=== PATIENT | female | born 1990 | race Caucasian/White ===

== ENCOUNTER → 2017-12-25 10:50 | Outpatient (CLI) | payer MEDICAID, SELFPAY ==
[2017-12-25 11:39] LABS: Basophils % 0.3 % (0.1-2.0); Eosinophils # 0.1 K/mm3 (0.0-0.4); Hematocrit 40.1 % (37.0-47.0); Hemoglobin 13.2 g/dL (12.2-16.2); Lymphocytes # 2.6 K/mm3 (0.7-4.5); Lymphocytes % 23.8 K/mm3 (10-50); Mean Corpuscular HGB Conc 32.8 g/dL (31.8-35.4); Mean Corpuscular Hemoglobin 30.8 pg (27.0-31.2); Mean Platelet Volume 8.3 fl (7.4-10.4); Monocytes # 0.5 K/mm3 (0.1-1.0); Monocytes % 4.3 % (1.7-9.3); Neutrophils # 7.7 K/mm3 (1.8-7.8); Neutrophils % 70.6 % (37.0-80.0); Platelet Count 275 K/mm3 (142-424); Red Blood Count 4.27 M/mm3 (4.20-5.40); Red Cell Distribution Width 12.8 % (11.5-17.5); White Blood Count 10.9 K/mm3 (4.8-10.8)
[2017-12-26 06:31] LABS: Rubella Antibodies, IgG 3.26 index (Immune >0.99)
[2017-12-26 12:36] LABS: HIV Screen 4th Generation wRfx Non Reactive (Non Reactive); Hepatitis B Surface Antigen Negative (Negative); Hepatitis C Antibody <0.1 s/co ratio (0.0-0.9)
[2017-12-26 12:37] LABS: Rapid Plasma Reagin Ab Titer Non Reactive (NonRea<1:1)
== END ==
PROVIDERS: PCP Family Medicine; Visit Provider Nurse Practitioner Obstetrics & Gynecology
DX: Z34.90 Encounter for supervision of normal pregnancy, unspecified, unspecified trimester (principal)
CPT/HCPCS: 36415; 85025; 86592; 86703; 86762; 86850; 87340; 87380; G0432

== ENCOUNTER → 2017-12-30 08:19 | Outpatient (CLI) | payer MEDICAID, SELFPAY ==
--- NOTE | 2017-12-30 08:21 | US_ITS ---
US OB transvaginal HISTORY: ITS.REASON: US OB Dates ORDERING PHYSICIAN: Narayan Olguin MD PATIENT AGE: 27 years COMPARISON: None FINDINGS: An intrauterine gestational sac is present with a pole with a crown-rump length of 2.28cm correlating to gestational age of 9w0d. heart tones are present with an FHR of 190 bpm's. Yolk sac is noted. The amnion and chorion have not yet fused. Adnexa: Unremarkable. IMPRESSION: Live intrauterine gestation at 9 weeks as described above. Estimated due date by Ultrasound is 08/04/2018
== END ==
PROVIDERS: PCP Family Medicine; Visit Provider Nurse Practitioner Obstetrics & Gynecology
DX: O26.841 Uterine size-date discrepancy, first trimester (principal)
CPT/HCPCS: 76817

== ENCOUNTER → 2018-03-13 12:46 | Outpatient (CLI) | payer MEDICAID, SELFPAY ==
--- NOTE | 2018-03-13 12:49 | US_ITS ---
US OB /maternal detail: INDICATION: ITS.REASON: US OB Complete ORDERING PHYSICIAN: Narayan Olguin MD PATIENT AGE: 27 years TECHNIQUE: ultrasound transabdominal scanning. COMPARISON: No previous relevant studies. FINDINGS: Single viable intrauterine gestation. Cephalic position. Placenta: Posterior placenta grade 1. There is average amount amniotic fluid. The cervix appears satisfactory. Closed and measuring 4 cm in length. Complete survey performed and was unremarkable on the submitted images as in PACS. No discrete anomalies identified on survey imaging by technologist. Active fetus. Three-vessel cord with satisfactory umbilical cord insertion. 4- chamber heart noted. Survey of brain & ventricles unremarkable. Face and neck survey unremarkable. Diaphragm and chest views unremarkable. Abdomen: Both kidneys noted and unremarkable. Stomach noted and satisfactory. Spine: Survey of the spine satisfactory with no anomalies identified nor imaged. Both arms and legs noted. Amniotic Fluid: Adequate. Maternal adnexa: No significant findings. Measurements: Average ultrasound age 19w5d. Gestational Age 19w3d. Estimated due date by ultrasound age 0508/02/2018. Estimated weight 303 grams. BPD = 19w5d OFD = 20w2d HC = 19w2d AC = 19w5d FL = 19w5d Growth Percentile= 57% Heart Rate = 191 Cerebellum = 19w4d Humerus = 20w1d HC/AC is 1.15 (1.09-1.26). CI is 76% (70-86%). FL/BPD is 69%. FL/AC is 22%. IMPRESSION: IMPRESSION: There is a single live fetus which is in cephalic presentation with an average ultrasound age of 19 weeks 5 days. All parameters correlate. No obvious anomalies. Placenta is posterior and grade one. Please see above for detail.
== END ==
PROVIDERS: PCP Family Medicine; Visit Provider Nurse Practitioner Obstetrics & Gynecology
DX: Z36.0 Encounter for antenatal screening for chromosomal anomalies (principal)
CPT/HCPCS: 76811

== ENCOUNTER → 2018-05-05 08:10 | Outpatient (CLI) | payer MEDICAID, SELFPAY ==
[2018-05-05 08:57] LABS: Glucose,Fasting 85 mg/dL (60-105)
[2018-05-05 10:26] LABS: Glucose 1 Hour 161 mg/dL (74-106)
== END ==
PROVIDERS: Visit Provider Nurse Practitioner Obstetrics & Gynecology
DX: Z34.90 Encounter for supervision of normal pregnancy, unspecified, unspecified trimester (principal)
CPT/HCPCS: 36415; 82951

== ENCOUNTER 2018-05-12 08:23 | Outpatient (CLI) | payer MEDICAID, SELFPAY ==
[2018-05-12 08:32] VITALS: BMI 29.7
[2018-05-12 08:56] VITALS: BMI 30.8
[2018-05-12 09:00] VITALS: BP 107/68; PULSE 89; RESP 20; TEMP 36.7; O2SAT 100; BMI 30.8
[2018-05-12 09:04] LABS: Microscopic, Urine URINE MICROSCOPIC (MICROSCOPIC)
[2018-05-12 09:10] LABS: Appearance,Urine SL CLOUDY (Clear); Bilirubin,Urine Negative (Negative); Blood, Urine Negative (Negative); Color,Urine YELLOW (Yellow); Glucose,Urine (UA) Negative (Negative); Ketones,Urine Negative (Negative); Leukocyte Esterase,Urine 1+ (Negative); Nitrate,Urine Negative (Negative); PH,Urine 6.5 (5.0-8.5); Protein,Urine Negative (Negative); Urobilinogen,Urine 0.2 EU/dl (0.2)
[2018-05-12 09:29] LABS: Bacteria,Urine 1+ /lpf
[2018-05-12 09:41] LABS: Fetal Fibronectin (Rapid) Negative (Negative)
--- NOTE | 2018-05-12 10:13 | [facility].ACPN2 ---
Internal Medicine - PN: Subj *Date: 05/12/18 *Time: 10:13 Interval history: She is a 28-year-old 3 para 2 at 30 weeks gestational age. She complains of pressure. She has been working 60 hours a week doing 12-hour shifts. She has not had a history of labor in the past. On examination her cervix is 1-2 cm long and soft. The presenting part is high. There are no cause on the monitor. The nonstress test is reactive. Exam Vital signs and Labs for Last 24 Hours: Temp Pulse Resp BP Pulse Ox 98.0 F 89 20 107/68 L 100 05/12/18 09:00 05/12/18 09:00 05/12/18 09:00 05/12/18 09:00 05/12/18 09:00 Laboratory Results - last 24 hr 05/12/18 08:30: Urine Color Yellow, Urine Appearance Sl cloudy, Urine pH 6.5, Ur Specific [place] 1.020, Urine Protein Negative, Urine Glucose (UA) Negative, Urine Ketones Negative, Urine Blood Negative, Urine Nitrate Negative, Urine Bilirubin Negative, Urine Urobilinogen 0.2, Ur Leukocyte Esterase 1+ A, Urine RBC None, Urine WBC 3-5, Ur Squamous Epith Cells 5-10, Urine Bacteria 1+ 05/12/18 08:30: Fibronectin Negative I & O for Last 24 hours: Intake & Output 05/09/18 05/10/18 05/11/18 05/12/18 11:59 11:59 11:59 11:59 Weight 158 lb - Constitutional no acute distress - *Routine HEENT Exam Head: Present: normocephalic Eye: Present: EOMI, PERRL ENT: Present: mucous membranes moist - *Routine Neck Exam Present: supple, full ROM - *Routine Respiratory Exam Absent: accessory muscle use (good air entry bilaterally), wheezes, crackles - *Routine Cardiovascular Exam Present: RRR. Absent: murmur - *Routine Abdominal Exam Present: soft, normoactive bowel sounds. Absent: tenderness, rebound, guarding, mass - *Routine Rectal Exam Patient deferred: visual exam, digital exam - *Routine Exam Patient deferred: external exam, groin exam, perineal exam - *Routine Extremities Exam Present: full ROM. Absent: cyanosis, edema, calf tenderness - *Routine Skin Exam Present: intact (good color) - *Routine Neurological Exam Present: alert, oriented X3 - Routine Psychiatric Exam Present: normal affect Assessment and Plan (1) Term delivery with labor in third trimester Current visit: Yes Status: Acute Category: Medical Code(s): O60.23X0 - Term delivery with labor, third trimester, not applicable or unspecified - Assessment and plan all Dx Assessment and Plan for all problems:: Her cervix is soft and 1-2 cm. The presenting part is high. We have given her a dose of steroids and she will return tomorrow for the second dose. She will rest as much as possible over the next 48 hours. She will follow-up with me in the office next week
== END 2018-05-12 10:15 | disposition home or self-care (01) ==
LOC: OBOUT 08:24 → OB 08:25
PROVIDERS: PCP Family Medicine; Visit Provider Nurse Practitioner Obstetrics & Gynecology
DX: O26.893 Other specified pregnancy related conditions, third trimester (principal); Z3A.28 28 weeks gestation of pregnancy; R10.2 Pelvic and perineal pain
CPT/HCPCS: 59025; 81001; 82731; 87086; 96360; 96372

== ENCOUNTER 2018-05-13 09:00 | Outpatient (CLI) | payer MEDICAID, SELFPAY | END 2018-05-13 09:30 | disposition home or self-care (01) | LOC: OBOUT 09:02 → OB 09:07 | PROVIDERS: PCP Family Medicine; Visit Provider Nurse Practitioner Obstetrics & Gynecology | DX: O26.893 Other specified pregnancy related conditions, third trimester (principal); Z3A.28 28 weeks gestation of pregnancy; R10.2 Pelvic and perineal pain | CPT/HCPCS: 96372 ==

== ENCOUNTER 2018-05-14 09:13 | Outpatient (CLI) | payer MEDICAID, SELFPAY ==
[2018-05-14 09:40] VITALS: BP 116/72; PULSE 104; RESP 20; TEMP 36.8; O2SAT 97; BMI 31.2
--- NOTE | 2018-05-14 10:11 | US_ITS ---
US OB biophysical profile: Indication: Decreased movement ITS.REASON: decreased movement ORDERING PHYSICIAN: Narayan Olguin MD PATIENT AGE: 28 years FINDINGS: The following parameters are obtained: Average ultrasound age is 29 weeks 1 day. Estimated weight is 1321 g. This is 37 percentile BPD: 29 weeks 0 days OFD: 29 weeks 4 days HC: 29 weeks 1 day AC: 29 weeks 1 day FL: 29 weeks 0 days heart rate: 144 bpm. HC/AC: 1.08 Cephalic index: 75% FL/BPD: 76% FL/AC: 22% Amniotic fluid index: 12 cm Qualitative AFV: 2 breathing movements: 2 Gross body movements: 2 Tone: 2 Biophysical profile score: 8/8 Doppler evaluation of the umbilical artery: SD ratio: 2.6 Resistive index: 0.62 No obvious anomalies evident. Placenta: Posterior and grade 1 Cervix: Closed and measures 4 cm IMPRESSION: Single live fetus in cephalic presentation. Average ultrasound age 29 weeks 1 day. Biophysical profiles 8 of 8 with normal amniotic fluid volume and normal Doppler evaluation of the umbilical artery
[2018-05-14 12:28] LABS: Microscopic, Urine URINE MICROSCOPIC (MICROSCOPIC)
[2018-05-14 12:29] LABS: Appearance,Urine SL CLOUDY (Clear); Bilirubin,Urine Negative (Negative); Blood, Urine TRACE-L (Negative); Color,Urine YELLOW (Yellow); Glucose,Urine (UA) Negative (Negative); Ketones,Urine Negative (Negative); Leukocyte Esterase,Urine 1+ (Negative); Nitrate,Urine Negative (Negative); PH,Urine 6.5 (5.0-8.5); Protein,Urine Negative (Negative); Specific Gravity, Urine 1.015 (1.005-1.030); Urobilinogen,Urine 0.2 EU/dl (0.2)
[2018-05-14 12:43] LABS: Amorphous Sediment,Urine 1+ /lpf; Bacteria,Urine 2+ /lpf
== END 2018-05-14 12:15 | disposition home or self-care (01) ==
LOC: OBOUT 09:15 → OB 09:16
PROVIDERS: PCP Family Medicine; Visit Provider Nurse Practitioner Obstetrics & Gynecology
DX: O26.893 Other specified pregnancy related conditions, third trimester (principal); Z3A.29 29 weeks gestation of pregnancy
CPT/HCPCS: 59025; 76819; 81001; 87086

== ENCOUNTER → 2018-05-19 16:21 | Outpatient (CLI) | payer MEDICAID, SELFPAY ==
[2018-05-19 16:57] LABS: Fetal Fibronectin (Rapid) Negative (Negative)
== END ==
PROVIDERS: Visit Provider Nurse Practitioner Obstetrics & Gynecology
DX: Z34.90 Encounter for supervision of normal pregnancy, unspecified, unspecified trimester (principal)
CPT/HCPCS: 82731

== ENCOUNTER → 2018-05-26 16:21 | Outpatient (CLI) | payer MEDICAID, SELFPAY ==
[2018-05-26 17:20] LABS: Fetal Fibronectin (Rapid) Negative (Negative)
== END ==
PROVIDERS: Visit Provider Nurse Practitioner Obstetrics & Gynecology
DX: Z34.90 Encounter for supervision of normal pregnancy, unspecified, unspecified trimester (principal)
CPT/HCPCS: 82731

== ENCOUNTER 2018-06-20 15:56 | Outpatient (CLI) | payer MEDICAID, SELFPAY ==
[2018-06-20 16:18] VITALS: BP 115/65; PULSE 101; RESP 20; TEMP 37.1; O2SAT 98; BMI 26.5
[2018-06-20 17:03] LABS: Microscopic, Urine URINE MICROSCOPIC (MICROSCOPIC)
[2018-06-20 17:07] LABS: Appearance,Urine CLOUDY (Clear); Bilirubin,Urine Negative (Negative); Blood, Urine TRACE-L (Negative); Color,Urine YELLOW (Yellow); Glucose,Urine (UA) Negative (Negative); Ketones,Urine TRACE (Negative); Leukocyte Esterase,Urine 1+ (Negative); Nitrate,Urine Negative (Negative); Protein,Urine TRACE (Negative); Specific Gravity, Urine >= 1.030 (1.005-1.030); Urobilinogen,Urine 0.2 EU/dl (0.2)
[2018-06-20 17:17] LABS: Bacteria,Urine 4+ /lpf; Mucus,Urine 4+ /lpf; Squamous Epithelial Cell,Urine 20-50 #/hpf (0-5); Trichomonas,Urine 1+ /lpf; WBC,Urine 20-50 #/hpf (0-3)
== END 2018-06-20 18:50 | disposition home or self-care (01) ==
LOC: OBOUT 15:57 → OB 15:58
PROVIDERS: PCP Family Medicine; Visit Provider Nurse Practitioner Obstetrics & Gynecology
DX: O26.93 Pregnancy related conditions, unspecified, third trimester (principal); Z3A.33 33 weeks gestation of pregnancy; R10.9 Unspecified abdominal pain
CPT/HCPCS: 59025; 81001; 87086; 96360; 96361; 96365; 96367; 96372; J0595

== ENCOUNTER → 2018-07-21 17:30 | Outpatient (CLI) | payer MEDICAID, SELFPAY | PROVIDERS: Visit Provider Nurse Practitioner Obstetrics & Gynecology | DX: Z34.90 Encounter for supervision of normal pregnancy, unspecified, unspecified trimester (principal); Z3A.38 38 weeks gestation of pregnancy | CPT/HCPCS: 86403 ==

== ENCOUNTER 2018-07-27 02:07 | Inpatient (IN) ==
[2018-07-27 05:38] LABS: Basophils % 0.4 % (0.1-2.0); Eosinophils # 0.1 K/mm3 (0.0-0.4); Hematocrit 32.7 % (37.0-47.0); Hemoglobin 11.1 g/dL (12.2-16.2); Lymphocytes # 2.7 K/mm3 (0.7-4.5); Lymphocytes % 28.6 % (10-50); Mean Corpuscular Hemoglobin 29.4 pg (27.0-31.2); Mean Corpuscular Volume 86.7 fl (81-99); Mean Platelet Volume 10.2 fl (7.4-10.4); Monocytes # 0.5 K/mm3 (0.1-1.0); Monocytes % 5.7 % (1.7-9.3); Neutrophils # 6.1 K/mm3 (1.8-7.8); Neutrophils % 64.3 % (37.0-80.0); Platelet Count 216 K/mm3 (142-424); Red Blood Count 3.77 M/mm3 (4.20-5.40); Red Cell Distribution Width 13.4 % (11.5-17.5); White Blood Count 9.5 K/mm3 (4.8-10.8)
[2018-07-27 07:47] LABS: Microscopic, Urine URINE MICROSCOPIC (MICROSCOPIC)
[2018-07-27 07:56] LABS: Appearance,Urine SL CLOUDY (Clear); Bilirubin,Urine Negative (Negative); Blood, Urine Negative (Negative); Color,Urine YELLOW (Yellow); Glucose,Urine (UA) Negative (Negative); Ketones,Urine Negative (Negative); Leukocyte Esterase,Urine TRACE (Negative); PH,Urine 6.5 (5.0-8.5); Protein,Urine Negative (Negative); Urobilinogen,Urine 0.2 EU/dl (0.2)
--- NOTE | 2018-07-27 08:02 | Progress Note ---
Labor Note - Subjective: Date: 07/27/18 Time: 08:01 regular contraction - Objective: NST:: Reactive Contractions:: every 2-3 minutes Cervical Dilation:: 5 Effacement:: 90% Station: -1 Membranes: artificially ruptured Comment:: I ruptured her membranes and there was clear fluid. - Fetus: Monitoring?: Yes monitoring type:: External - Assessment: Labor progressing?: Yes Cephalopelvic disproportion?: No Patient Problems: All Active Problems (Updated 07/21/18 @ 08:50 by Amna Cunningham, [facility]) Term delivery with labor in third trimester (Acute) (Acute) - Plan: Anesthesia for epidural?: Yes Continue to labor down?: Yes Plan for ?: No Continue to monitor?: Yes
[2018-07-27 08:04] LABS: Amphetamine/Metha Screen,Urine Negative ng/mL (<1000); Barbiturates Screen,Urine Negative ng/mL (<200); Benzodiazepines Screen,Urine Negative ng/mL (<200); Cannabinoid Screen,Urine Negative ng/mL (<50); Cocaine Screen,Urine Negative ng/mL (<300); Methadone Screen,Urine Negative ng/mL (<300); Opiate Screen,Urine Negative ng/mL (<300); Phencyclidine Screen,Urine Negative ng/mL (<25)
--- NOTE | 2018-07-27 08:04 | History & Physical Report ---
OB - H&P: HPI Antepartum - History of Present Illness Chief complaint: She is term with lots of pressure and occasional contractions History of present illness: She is a 28-year-old 4 para 2 aborta 1 who is 39 weeks gestational age. She has been having painful contractions and lots of pressure for the last few weeks. As a result of that we have admitted her for augmentation at term - History of Present Criteria for establishing EDC:: LMP confirmed by 1st trimester US care: good care Ultrasounds: normal 1st trimester US, normal mid trimester US Obstetrical complications: labor Medical complications: none [facility] History I have reviewed the patient's past medical history: Yes Medical History: Reports:: Depression Denies:: Anxiety, Diabetes Mellitus Type 1, Migraine, MRSA *Have you ever received a pneumonia vaccine?: No *Have you received a flu vaccine this season?: No Other Surgeries: Yes: No Previous Surgery. No: Amputation: No Fractures: No - *Social History Smoking Status: Current every day smoker Alcohol Intake: never Substance Use Type: denies use *Occupational Status:: employed - Psychiatric History Pschychiatric History:: Reports:: Depression Denies:: Anxiety Family Hx:: No significant family history Para: 2 Review of Systems - Review of Systems Review of systems:: pertinent systems reviewed and negative unless documented below Meds Home Medications Medication Instructions Recorded Confirmed Type Ferrous Sulfate 325 mg PO DAILY 07/27/18 07/27/18 History Vit Calc,Iron,Folic [Kpn] 1 tab PO DAILY 07/27/18 07/27/18 History Allergies Allergy/AdvReac Type Severity Reaction Status Date / Time No Known Allergies Allergy Verified 07/21/18 08:48 OB - H&P: Exam - Physical Exam Vital signs: Temp Pulse Resp BP Pulse Ox 98.6 F 86 16 121/90 99 07/27/18 05:58 07/27/18 05:58 07/27/18 05:58 07/27/18 05:58 07/27/18 05:58 - Constitutional no acute distress - Routine HEENT Exam Head: Present: normocephalic Eye: Present: EOMI, PERRL ENT: Present: mucous membranes moist - Routine Neck Exam Present: supple, full ROM - Routine Respiratory Exam Absent: accessory muscle use (good air entry bilaterally), respiratory distress, wheezes, crackles - Routine Cardiovascular Exam Present: RRR. Absent: murmur - Routine Abdominal Exam Present: soft, normoactive bowel sounds. Absent: tenderness, distended, guarding - Routine Rectal Exam Patient deferred: visual exam, digital exam - Routine Exam Patient deferred: external exam, groin exam, perineal exam - Routine Extremities Exam Present: full ROM. Absent: cyanosis, edema - Routine Skin Exam Present: intact. Absent: cyanosis - Routine Neurological Exam Present: alert, oriented X3 - Routine Psychiatric Exam Present: normal affect OB - Results - Labs Labs: Short CBC 07/27/18 Range/Units 05:30 WBC 9.5 (4.8-10.8) K/mm3 Hgb 11.1 L (12.2-16.2) g/dL Hct 32.7 L (37.0-47.0) % Plt Count 216 (142-424) K/mm3 OB - A/P Antepartum (1) Normal delivery Current visit: Yes Status: Acute - Additional Plan Planning to breastfeed?: No Plan: other Additional Information:: I ruptured her membranes and she is 5 cm dilated. She has had 2 previous vaginal deliveries. We expect a normal vaginal delivery.
[2018-07-27 08:10] LABS: Amorphous Sediment,Urine 1+ /lpf; Bacteria,Urine Trace /lpf; RBC,Urine Occasional #/hpf (0-3)
--- NOTE | 2018-07-27 09:31 | Procedure Note ---
- Delivery Note Delivery Date:: 07/27/18 Delivery Time:: 09:14 Anesthesia Type: Epidural Was labor medically induced?: Yes Induction method: per pitocin protocol Gestational age (weeks): 39 Infant delivered prior to 39 weeks?: No Justification for early elective delivery:: Active Labor Infant Gender: Male at 1 minute: 8 at 5 minutes: 9 LAC or MLE?: LAC Delivery Procedure:: She is a 28-year-old 4 para 2 aborta 1 who was 39 weeks gestational age. She has had pressure and irregular contractions for the last month. As result of that we elected to augment her labor. She was started on IV oxytocin and had her membranes ruptured. She progressed to full dilation and delivered spontaneously a liveborn male child at 9:14 AM on the morning of July 27, 2018. On deliver the head the anterior shoulder then delivered followed by the rest the 's body atraumatically. We allowed the cord to continue to pulsate for approximately 1 minute. The cord was then doubly clamped and cut. Baby was placed on the mother's abdomen for further care. The nurses assigned Apgars of 8 at 1 minute and 9 at 5 minutes. We then obtained cord blood as well as cord pH. Using gentle traction on the cord and countertraction the fundus I was able to deliver the placenta intact. He had a normal three-vessel cord. She had a small 1 cm posterior first-degree vaginal laceration that was repaired with a single [id number] 3-0 Vicryl Rapide suture. She has O+ blood, she is rubella immune and was group B streptococcus negative. She plans to bottlefeed. Her admission liaison is Dr. Daugherty. Estimated blood loss is approximately 400 cc Laceration:: vaginal Placental Delivery Description: Spontaneous
--- NOTE | 2018-07-27 14:43 | Progress Note ---
[facility] Anesthesia Checklist - Patient Identification Patient Identification: Arm Band, Verbal (Name & ) - Structural Data Admitted From: Inpatient Planned Operative Procedure/s: labor epidural Consent for Planned Operative Procedure(s) Verified: Yes Verified Documents: History and Physical - Additional verifications Patient : Yes Anesthesia Reactions: No Hx Blood Transfusions: No Blood Transfusion Reaction: No Cephalosporin Allergy: No Previous Colonoscopy: No - Cardiovascular Assessment Heart Sounds: S1 & S2 Pulse Strength: Baseline Pulse Rhythm: Regular Peripheral Edema: Yes - Airway Assessment C-Spine Mobility Assessed: Yes TMJ Mobility Assessed: Yes Dentition: Good Dentition - Neurological Assessment Level of Consciousness: Awake, Alert, Appropriate Hx Seizures: No Numbness or tingling in extremities: No - Anesthesia Plan Anesthesia Risk discussed: Yes Anesthesia Plan: Verified ASA Class: II Anesthesia Type: Epidural [facility] History I have reviewed the patient's past medical history: Yes Medical History: Reports:: Depression Denies:: Anxiety, Diabetes Mellitus Type 1, Migraine, MRSA *Have you ever received a pneumonia vaccine?: No *Have you received a flu vaccine this season?: No Other Surgeries: Yes: No Previous Surgery. No: Amputation: No Fractures: No - *Social History Smoking Status: Current every day smoker Alcohol Intake: never Substance Use Type: denies use *Occupational Status:: employed - Psychiatric History Pschychiatric History:: Reports:: Depression Denies:: Anxiety Family Hx:: No significant family history Para: 2
[2018-07-28 07:18] LABS: Hematocrit 29.2 % (37.0-47.0); Hemoglobin 9.7 g/dL (12.2-16.2)
--- NOTE | 2018-07-28 17:33 | Progress Note ---
Internal Medicine - PN: Subj *Date: 07/28/18 *Time: 17:33 Interval history: She continues to do well. She is eating and drinking and ambulating. She is bottlefeeding. Her lochia is normal. Exam Vital signs and Labs for Last 24 Hours: Temp Pulse Resp BP Pulse Ox 98.1 F 78 16 103/62 L 98 07/27/18 19:50 07/27/18 19:50 07/27/18 19:50 07/27/18 19:50 07/27/18 19:50 Laboratory Results - last 24 hr 07/28/18 06:31: Hgb 9.7 L, Hct 29.2 L I & O for Last 24 hours: Intake & Output 07/26/18 07/27/18 07/28/18 07/29/18 11:59 11:59 11:59 11:59 Weight 163 lb 0.016 oz - Constitutional no acute distress Assessment and Plan (1) Normal delivery Current visit: Yes Status: Acute Category: Medical Code(s): O80 - Encounter for full-term uncomplicated delivery - Assessment and plan all Dx Assessment and Plan for all problems:: She continues to do well. We will plan to send her home tomorrow.
[2018-07-28 21:06] VITALS: BP 109/62
--- NOTE | 2018-07-29 09:30 | Discharge Summary ---
General - General Admission date:: 07/27/18 Discharge date: 07/29/18 HPI HPI: She is a 28-year-old 4 now para 3 aborta 1 who was 3904 weeks gestational age. She was having pressure and irregular contractions since about 32 weeks. As result of that she was brought in for augmentation of labor. Hospital Course Hospital Course: She was started on IV oxytocin had her memory and ruptured and under labor epidural progressed to full dilation she delivered spontaneously a liveborn male child at 9:14 AM on the morning of July 27, 2018. The baby weighed 7 pounds 6 ounces and was 20 inches long. He had Apgars of 8 at 1 minute and 9 at 5 minutes. She had a small first-degree posterior vaginal laceration. She has done well and has remained afebrile throughout her hospitalization. She is eating and drinking and ambulating. She is bottlefeeding. Her lochia is normal. She has O+ blood, she is rubella immune and was group B streptococcus negative. Her campus executive director is Dr. stevenson. She is discharged home follow-up with me in approximately 2 weeks time. She will continue with her vitamins and iron. She was given a prescription for Percocet 5/325 number 20 tablets. Her condition on discharge is stable. Rhogam Administration: Not Indicated Objective Vital signs: Temp Pulse Resp BP Pulse Ox 98.0 F 79 16 109/62 L 98 07/28/18 20:05 07/28/18 20:05 07/28/18 20:05 07/28/18 20:05 07/28/18 20:05 no acute distress DS: Diagnosis - Discharge Diagnosis (1) Normal delivery Status: Acute Discharge Plan - Patient Discharge Instructions ACTIVITY: No heavy lifting DIET: continue same diet Additional Instructions: Nothing in vagina for 6 weeks Follow up with Doctor Olguin on No heavy lifting Patient Instructions: Depression, Hemorrhage, [facility] Post Discharge Instructions - Follow up Plan Follow up with: Narayan Olguin MD [Staff Physician] - Disposition: Home, Self-Intermediate Medications: Home Medications Medication Instructions Recorded Confirmed Type Ferrous Sulfate 325 mg PO DAILY 07/27/18 07/27/18 History Vit Calc,Iron,Folic [Kpn] 1 tab PO DAILY 07/27/18 07/27/18 History Oxycodone HCl/Acetaminophen 1 - 2 tab PO Q4-6H PRN #20 tab 07/29/18 Rx [Percocet 5/325mg tablet] Prescriptions/Medication Reconciliation: New Oxycodone HCl/Acetaminophen [Percocet 5/325mg tablet] 1 - 2 tab PO Q4-6H PRN #20 tab PRN Reason: Severe Pain Continued Vit Calc,Iron,Folic [Kpn] 1 tab PO DAILY Ferrous Sulfate 325 mg PO DAILY
== END 2018-07-29 10:45 | disposition home or self-care (01) | DRG 807 ==
LOC: OB 04:53
PROVIDERS: ADMIT Nurse Practitioner Obstetrics & Gynecology; ATTEND Nurse Practitioner Obstetrics & Gynecology
CPT/HCPCS: J0595

== ENCOUNTER → 2018-09-24 07:46 | Outpatient (CLI) | payer MEDICAID, SELFPAY ==
--- NOTE | 2018-09-24 07:48 | US_ITS ---
US gallbladder HISTORY: ITS.REASON: US Gallbladder- RUQP ORDERING PHYSICIAN: Narayan Olguin MD PATIENT AGE: 28 years Comparison: None FINDINGS: Common bile duct is normal measuring 2.0 mm. Visualized portions of the right kidney, gallbladder, liver, portal vein, pancreas area and IVC appear normal. IMPRESSION: No definite gallstone or acute process.
--- NOTE | 2018-09-24 07:48 | US_ITS ---
US transvaginal HISTORY: ITS.REASON: US T/V- Pelvic Pain ORDERING PHYSICIAN: Narayan Olguin MD PATIENT AGE: 28 years Comparison: None FINDINGS: The uterus is empty with endometrial thickness of 1.4 cm. There is minimal: Sak fluid. Right ovary is 3.6 x 2.2 x 2.0 cm. Left ovary is 2.8 x 1.8 x 11.7 cm. Left ovary shows a a few small follicles with blood flow. Right ovary also shows small follicles with normal blood flow. Impression: Nonspecific small amount of cul-de-sac fluid likely physiological. Bilateral small ovarian follicles.
== END ==
PROVIDERS: Visit Provider Nurse Practitioner Obstetrics & Gynecology
DX: R10.11 Right upper quadrant pain (principal); R10.2 Pelvic and perineal pain
CPT/HCPCS: 76705; 76830

== ENCOUNTER → 2018-11-04 09:04 | Outpatient (CLI) | payer MEDICAID, SELFPAY ==
--- NOTE | 2018-11-04 09:10 | US_ITS ---
US OB transvaginal: INDICATION: Right-sided intermittent pelvic pain ITS.REASON: US OB T/V- R/O Ectopic ORDERING PHYSICIAN: Narayan Olguin MD PATIENT AGE: 28 years FINDINGS: There is marked thickening of the endometrium measuring up to 2.6 cm with a minimal amount of fluid within the endometrial canal. There are multiple tiny cystic structures within the endometrium. No parts are identified. The uterus measures 9.4 x 6.8 x 7.8 cm. The right ovary is 3.4 x 2.7 cm and contains a 1.3 cm cyst. The left ovary is 3 x 1 cm containing small follicles. No cul-de-sac fluid is evident. IMPRESSION: 1. Markedly thickened endometrium containing small cystic structures. Molar is a consideration. Please correlate with serum beta hCG levels 2. Small amount of fluid within the endometrial canal. This does not have the normal appearance of a normal gestational sac.. No definite intrauterine gestation apparent.
== END ==
PROVIDERS: PCP Family Medicine; Visit Provider Nurse Practitioner Obstetrics & Gynecology
DX: O00.90 Unspecified ectopic pregnancy without intrauterine pregnancy (principal)
CPT/HCPCS: 76817

== ENCOUNTER → 2019-01-14 12:39 | Outpatient (CLI) | payer MEDICAID, SELFPAY ==
--- NOTE | 2019-01-14 12:40 | US_ITS ---
PROCEDURE: US OB TRANSVAGINAL CLINICAL INDICATION: US OB for dates, some cramping(as hx of molar ) Early Ob ultrasound COMPARISON: OBTV US OB transvaginal from 11/04/2018 FINDINGS: The endometrium is markedly thickened as before at 2.2 cm previously measuring 2.6 cm with multiple small lakes noted within the endometrium. There is 1 cystic area within the upper aspect of the endometrium at 5 x 4 mm by 7 mm and could represent a small gestational sac. No pole or yolk sac is evident. In addition there is a 9 x 4 mm oval area of decreased echogenicity in the anterior aspect of the thickened endometrium. The left ovary is 3 x 2.7 cm containing a small cyst. The right ovary is 2.8 x 2 cm. There is a small amount of cul-de-sac fluid IMPRESSION: Thickened endometrium with a small gestational sac noted. No yolk sac or pole evident. Cannot confirm viability at this time. Please correlate with beta HCG and follow-up ultrasound. There are several small cystic areas within the thickened endometrium. Dictated by: Chacho Frey MD 01/15/2019 12:08 Electronically signed by Chacho Frey MD in [facility] 01/15/2019 12:08
== END ==
PROVIDERS: PCP Physician Assistant; Visit Provider Nurse Practitioner Obstetrics & Gynecology
DX: O26.841 Uterine size-date discrepancy, first trimester (principal); Z87.59 Personal history of other complications of pregnancy, childbirth and the puerperium
CPT/HCPCS: 76817

== ENCOUNTER → 2019-02-19 09:26 | Outpatient (CLI) | payer MEDICAID, SELFPAY ==
--- NOTE | 2019-02-19 09:40 | US_ITS ---
PROCEDURE: US OB TRANSVAGINAL CLINICAL INDICATION: US T/V- OB Dates COMPARISON: US OB TRANSVAGINAL from 01/14/2019 FINDINGS: An intrauterine gestational sac is present with a pole with a crown-rump length of 3.47 cm correlating to gestational age of 10.43 week. heart tones are present with an FHR of 174 bpm. Yolk sac is noted. The amnion and chorion and not yet fused. IMPRESSION: Live IUP at 10 weeks 3 days Estimated due date by Ultrasound is 09/14/2019 Dictated by: Chacho Frey MD 02/19/2019 17:12 Electronically signed by Chacho Frey MD in [facility] 02/19/2019 17:12
== END ==
PROVIDERS: PCP Physician Assistant; Visit Provider Nurse Practitioner Obstetrics & Gynecology
DX: O26.841 Uterine size-date discrepancy, first trimester (principal)
CPT/HCPCS: 76817

== ENCOUNTER → 2019-03-23 09:38 | Outpatient (CLI) | payer MEDICAID, SELFPAY ==
[2019-03-23 10:30] LABS: Basophils % 0.3 % (0.1-2.0); Eosinophils # 0.1 K/mm3 (0.0-0.4); Eosinophils % 1.3 % (0.1-12.0); Hematocrit 33.8 % (37.0-47.0); Hemoglobin 11.6 g/dL (12.2-16.2); Lymphocytes # 1.9 K/mm3 (0.7-4.5); Lymphocytes % 18.5 % (10-50); Mean Corpuscular HGB Conc 34.3 g/dL (31.8-35.4); Mean Corpuscular Hemoglobin 31.7 pg (27.0-31.2); Mean Corpuscular Volume 92.4 fl (81-99); Monocytes # 0.5 K/mm3 (0.1-1.0); Monocytes % 4.5 % (1.7-9.3); Neutrophils # 7.7 K/mm3 (1.8-7.8); Neutrophils % 75.5 % (37.0-80.0); Platelet Count 303 K/mm3 (142-424); Red Blood Count 3.66 M/mm3 (4.20-5.40); White Blood Count 10.2 K/mm3 (4.8-10.8)
[2019-03-24 05:17] LABS: HIV Screen 4th Generation wRfx Non Reactive (Non Reactive)
[2019-03-25 05:21] LABS: Rapid Plasma Reagin Ab Titer Non Reactive (NonRea<1:1)
[2019-03-25 05:22] LABS: Hepatitis B Surface Antigen Negative (Negative); Hepatitis C Antibody <0.1 s/co ratio (0.0-0.9)
== END ==
PROVIDERS: Visit Provider Nurse Practitioner Obstetrics & Gynecology
DX: Z34.90 Encounter for supervision of normal pregnancy, unspecified, unspecified trimester (principal)
CPT/HCPCS: 36415; 85025; 86592; 86703; 86762; 86850; 87340; 87380; G0432

== ENCOUNTER → 2019-04-05 14:46 | Outpatient (CLI) | payer MEDICAID, SELFPAY ==
--- NOTE | 2019-04-05 14:50 | US_ITS ---
PROCEDURE: US OB >= 14 WEEKS FETUS CLINICAL INDICATION: Spotting at 16 wks COMPARISON: US OB TRANSVAGINAL from 02/19/2019 FINDINGS: There is a single live fetus present which is in cephalic presentation. heart and body motion noted. The placenta is posterior in implantation and grade 1. No previa or abruption. The cervix is closed and measures 3.5 cm. Following parameters are obtained average ultrasound age 17 weeks 0 days, BPD 17 weeks 3 days, OFD 17 weeks 0 days, HC 16 weeks 5 days, AC 16 weeks 6 days, FL 16 weeks 6 days. Heart rate is 156 BPM IMPRESSION: Live IUP at 17 weeks 0 days as described above. Please see above for detail. This does not constitute an anatomy exam Dictated by: Chacho Frey MD 04/06/2019 09:53 Electronically signed by Chacho Frey MD in [facility] 04/06/2019 09:53
== END ==
PROVIDERS: PCP Physician Assistant; Visit Provider Nurse Practitioner Obstetrics & Gynecology
DX: O26.852 Spotting complicating pregnancy, second trimester (principal)
CPT/HCPCS: 76805

== ENCOUNTER → 2019-05-05 14:21 | Outpatient (CLI) | payer MEDICAID, SELFPAY ==
--- NOTE | 2019-05-05 14:27 | US_ITS ---
PROCEDURE: US OB /MATERNAL DETAIL CLINICAL INDICATION: encounter for screening for anomalies Complete OB exam, anatomy evaluation COMPARISON: US OB >= 14 WEEKS FETUS from 04/05/2019 FINDINGS: There is a single live fetus present which is in cephalic presentation. heart and body motion noted. The cervix is closed and measures 3 cm. There is average appearing amount of amniotic fluid. Placenta is posterior and grade 1 Complete survey performed and was unremarkable on the submitted images as in PACS. No discrete anomalies identified on survey imaging by technologist. Active fetus. Three-vessel cord with satisfactory umbilical cord insertion. 4- chamber heart noted. Survey of brain & ventricles Unremarkable. Face and neck survey unremarkable. Diaphragm and chest views unremarkable. Abdomen: Both kidneys noted and unremarkable. Stomach noted and satisfactory. Spine: Survey of the spine satisfactory with no anomalies identified nor imaged. Both arms and legs noted. Amniotic Fluid: Adequate. Maternal adnexa: No significant findings. Measurements: Average ultrasound age 21weeks 5days. Gestational Age 21 weeks 1 day Estimated due date by ultrasound age 0609/10/2019. Estimated weight 440g BPD = 21weeks 5days OFD = 22 weeks 4 days HC = 21weeks 4days AC = 22weeks 3days FL = 20weeks 6days Growth Percentile= 72% Heart Rate = 167bpm Cerebellum = 21weeks 4days Humerus = 20weeks 5days HC/AC is 1.1 CI is 0.74 FL/BPD is 0.67 FL/AC is 0.2 IMPRESSION: Live intrauterine gestation at 21 weeks 5 days. All parameters correlate. No obvious anomalies. Please see above for detail. Dictated by: Chacho Frey MD 05/06/2019 07:19 Electronically signed by Chacho Frey MD in [facility] 05/06/2019 07:19
== END ==
PROVIDERS: PCP Physician Assistant; Visit Provider Nurse Practitioner Obstetrics & Gynecology
DX: Z36.0 Encounter for antenatal screening for chromosomal anomalies (principal)
CPT/HCPCS: 76811

== ENCOUNTER 2019-05-16 14:38 | Outpatient (CLI) | payer MEDICAID, SELFPAY ==
[2019-05-16 15:00] VITALS: BP 130/78; PULSE 102; RESP 18; TEMP 37.2; O2SAT 98; BMI 32.5
[2019-05-16 15:50] VITALS: BMI 32.5
[2019-05-16 15:55] LABS: Microscopic, Urine URINE MICROSCOPIC (MICROSCOPIC)
[2019-05-16 15:56] LABS: Appearance,Urine CLEAR (Clear); Bilirubin,Urine Negative (Negative); Blood, Urine 2+ (Negative); Color,Urine YELLOW (Yellow); Glucose,Urine (UA) Negative (Negative); Ketones,Urine Negative (Negative); Leukocyte Esterase,Urine 1+ (Negative); Nitrate,Urine Negative (Negative); PH,Urine 6.5 (5.0-8.5); Protein,Urine Negative (Negative); Specific Gravity, Urine 1.025 (1.005-1.030); Urobilinogen,Urine 0.2 EU/dl (0.2)
[2019-05-16 16:04] LABS: Amphetamine/Metha Screen,Urine Negative ng/mL (<1000); Barbiturates Screen,Urine Negative ng/mL (<200); Benzodiazepines Screen,Urine Negative ng/mL (<200); Cannabinoid Screen,Urine Negative ng/mL (<50); Cocaine Screen,Urine Negative ng/mL (<300); Methadone Screen,Urine Negative ng/mL (<300); Opiate Screen,Urine Negative ng/mL (<300); Phencyclidine Screen,Urine Negative ng/mL (<25); Squamous Epithelial Cell,Urine 20-50 #/hpf (0-5); WBC,Urine 20-50 #/hpf (0-3)
[2019-05-16 16:06] LABS: Fetal Membrane Rupture (Rapid) Negative (Negative)
[2019-05-16 16:27] LABS: Fetal Fibronectin (Rapid) Negative (Negative)
--- NOTE | 2019-05-16 17:56 | HMH.ACPN2 ---
Internal Medicine - PN: Subj *Date: 05/16/19 *Time: 17:56 Interval history: She is a 29-year-old 5 para 3 at 22 weeks gestational age who came in with lower abdominal pain, cramping and a small amount of vaginal bleeding. She also said she may have been leaking fluid. On examination she is not carol and there are heart tones. She is not actively bleeding. There is a small amount of brownish discharge on the glove. AmniSure was negative. Urinalysis was negative except for a small amount of blood consistent with her vaginal bleeding. She does admit to having had intercourse 2 days ago. Exam Vital signs and Labs for Last 24 Hours: Temp Pulse Resp BP Pulse Ox 98.9 F 102 H 18 130/78 98 05/16/19 15:00 05/16/19 15:00 05/16/19 15:00 05/16/19 15:00 05/16/19 15:00 Laboratory Results - last 24 hr 05/16/19 14:50: Urine Color Yellow, Urine Appearance Clear, Urine pH 6.5, Ur Specific [place] 1.025, Urine Protein Negative, Urine Glucose (UA) Negative, Urine Ketones Negative, Urine Blood 2+, Urine Nitrate Negative, Urine Bilirubin Negative, Urine Urobilinogen 0.2, Ur Leukocyte Esterase 1+ A, Urine RBC 10-20, Urine WBC 20-50, Ur Squamous Epith Cells 20-50, Urine Bacteria None 05/16/19 14:50: Urine Opiates Screen Negative, Urine Methadone Screen Negative, Ur Barbituates Screen Negative, Ur Phencyclidine Scrn Negative, Ur Amphetamines Screen Negative, U Benzodiazepines Scrn Negative, Urine Cocaine Screen Negative, U Marijuana (THC) Screen Negative 05/16/19 15:20: Membrane Rupture Negative 05/16/19 15:20: Fibronectin Negative I & O for Last 24 hours: Intake & Output 05/14/19 05/15/19 05/16/19 05/17/19 11:59 11:59 11:59 11:59 Weight 167 lb - Constitutional no acute distress - *Routine HEENT Exam Head: Present: normocephalic Eye: Present: EOMI, PERRL ENT: Present: mucous membranes moist - *Routine Neck Exam Present: supple, full ROM Assessment and Plan (1) Pelvic cramping Current visit: No Status: Acute Category: Medical Code(s): R10.2 - Pelvic and perineal pain (2) Vaginal bleeding during Current visit: No Status: Acute Category: Medical Code(s): O46.90 - Antepartum hemorrhage, unspecified, unspecified trimester - Assessment and plan all Dx Assessment and Plan for all problems:: She had a small amount of bleeding that I suspect may have been from the cervix as a result of intercourse. She is not having any contractions on the monitor. She feels well. I have reassured her. She has an appointment with me that she will keep in 48 hours. We will discharge her home today.
== END 2019-05-16 17:55 | disposition home or self-care (01) ==
LOC: UTC.OUT 14:41 → OB 14:42
PROVIDERS: PCP Physician Assistant; Visit Provider Nurse Practitioner Obstetrics & Gynecology
DX: O26.899 Other specified pregnancy related conditions, unspecified trimester (principal); O26.859 Spotting complicating pregnancy, unspecified trimester; Z3A.22 22 weeks gestation of pregnancy
CPT/HCPCS: 59025; 80305; 81001; 82731; 84112; 87086; G0463

== ENCOUNTER 2019-06-25 11:21 | Outpatient (CLI) | payer MEDICAID, SELFPAY ==
[2019-06-25 11:31] VITALS: BP 114/66; PULSE 107; RESP 18; O2SAT 98; BMI 29.2
== END 2019-06-25 11:35 | disposition home or self-care (01) ==
LOC: OBOUT 11:22 → OB 11:23
PROVIDERS: PCP Physician Assistant; Visit Provider Nurse Practitioner Obstetrics & Gynecology
DX: O47.03 False labor before 37 completed weeks of gestation, third trimester (principal); Z3A.28 28 weeks gestation of pregnancy

== ENCOUNTER 2019-06-26 10:00 | Outpatient (CLI) | payer MEDICAID, SELFPAY ==
[2019-06-26 10:19] VITALS: BP 120/64; PULSE 104; RESP 16; TEMP 36.8; O2SAT 98; BMI 33.7
== END 2019-06-26 10:30 | disposition home or self-care (01) ==
LOC: OBOUT 10:04 → OB 10:06
PROVIDERS: PCP Physician Assistant; Visit Provider Nurse Practitioner Obstetrics & Gynecology
DX: O47.03 False labor before 37 completed weeks of gestation, third trimester (principal); Z3A.28 28 weeks gestation of pregnancy
CPT/HCPCS: 96372; G0463

== ENCOUNTER 2019-07-11 19:50 | Outpatient (CLI) | payer MEDICAID, SELFPAY ==
[2019-07-11 20:05] VITALS: BMI 34.0
[2019-07-11 20:26] VITALS: BP 124/88; PULSE 111; RESP 18; TEMP 37.1; O2SAT 96; BMI 34.0
[2019-07-11 20:35] LABS: Microscopic, Urine URINE MICROSCOPIC (MICROSCOPIC)
[2019-07-11 20:43] LABS: Appearance,Urine CLOUDY (Clear); Bilirubin,Urine Negative (Negative); Blood, Urine Negative (Negative); Color,Urine YELLOW (Yellow); Glucose,Urine (UA) Negative (Negative); Ketones,Urine Negative (Negative); Leukocyte Esterase,Urine 2+ (Negative); Nitrate,Urine Negative (Negative); PH,Urine 7.5 (5.0-8.5); Protein,Urine Negative (Negative); Urobilinogen,Urine 0.2 EU/dl (0.2)
[2019-07-11 20:47] LABS: Amorphous Sediment,Urine 4+ /lpf; Squamous Epithelial Cell,Urine 20-50 #/hpf (0-5)
[2019-07-11 20:51] LABS: Amphetamine/Metha Screen,Urine Negative ng/ml (<1000)
[2019-07-11 20:52] LABS: Barbiturates Screen,Urine Negative ng/ml (<200)
[2019-07-11 20:52] LABS: Fetal Membrane Rupture (Rapid) Negative (Negative)
[2019-07-11 20:53] LABS: Benzodiazepines Screen,Urine Negative ng/ml (<200); Cannabinoid Screen,Urine Negative ng/ml (<50)
[2019-07-11 20:54] LABS: Cocaine Screen,Urine Negative ng/ml (<300); Methadone Screen,Urine Negative ng/ml (<300)
[2019-07-11 20:55] LABS: Opiate Screen,Urine Negative ng/ml (<300)
[2019-07-11 20:56] LABS: Phencyclidine Screen,Urine Negative ng/ml (<25)
== END 2019-07-11 22:45 | disposition home or self-care (01) ==
LOC: OBOUT 19:55 → OB 19:56
PROVIDERS: PCP Nurse Practitioner Obstetrics & Gynecology; Visit Provider Obstetrics & Gynecology
DX: O47.03 False labor before 37 completed weeks of gestation, third trimester (principal); Z3A.30 30 weeks gestation of pregnancy
CPT/HCPCS: 59025; 80305; 81001; 84112; 87086; 96365; 96367; 96372; G0463

== ENCOUNTER 2019-07-30 21:13 | Observation (INO) | payer MEDICAID, SELFPAY ==
[2019-07-30 20:26] VITALS: BMI 33.5
[2019-07-30 20:33] LABS: Microscopic, Urine URINE MICROSCOPIC (MICROSCOPIC)
[2019-07-30 20:35] VITALS: BP 115/74; PULSE 111; RESP 18; TEMP 37.6; O2SAT 96; BMI 33.5
[2019-07-30 20:46] LABS: Appearance,Urine CLEAR (Clear); Bilirubin,Urine Negative (Negative); Blood, Urine TRACE-L (Negative); Color,Urine YELLOW (Yellow); Glucose,Urine (UA) Negative (Negative); Ketones,Urine Negative (Negative); Leukocyte Esterase,Urine 3+ (Negative); Nitrate,Urine Negative (Negative); Protein,Urine Negative (Negative); Urobilinogen,Urine 0.2 EU/dl (0.2)
[2019-07-30 20:51] LABS: WBC,Urine 50-100 #/hpf (0-3)
[2019-07-30 20:56] LABS: Amphetamine/Metha Screen,Urine Negative ng/ml (<1000); Barbiturates Screen,Urine Negative ng/ml (<200)
[2019-07-30 20:57] LABS: Benzodiazepines Screen,Urine Negative ng/ml (<200)
[2019-07-30 20:58] LABS: Cannabinoid Screen,Urine Negative ng/ml (<50); Cocaine Screen,Urine Negative ng/ml (<300)
[2019-07-30 20:59] LABS: Methadone Screen,Urine Negative ng/ml (<300); Opiate Screen,Urine Negative ng/ml (<300)
[2019-07-30 21:00] LABS: Phencyclidine Screen,Urine Negative ng/ml (<25)
[2019-07-30 21:07] LABS: Fetal Fibronectin (Rapid) Positive (Negative)
[2019-07-30 22:01] LABS: Basophils # 0.1 K/mm3 (0-0.2); Basophils % 0.6 % (0.1-2.0); Eosinophils # 0.1 K/mm3 (0.0-0.4); Eosinophils % 0.5 % (0.1-12.0); Hemoglobin 11.2 g/dL (12.2-16.2); Lymphocytes # 1.5 K/mm3 (0.7-4.5); Mean Corpuscular HGB Conc 33.9 g/dL (31.8-35.4); Mean Corpuscular Hemoglobin 29.8 pg (27.0-31.2); Mean Corpuscular Volume 87.9 fl (81-99); Mean Platelet Volume 8.9 fl (7.4-10.4); Monocytes # 0.6 K/mm3 (0.1-1.0); Neutrophils # 6.8 K/mm3 (1.8-7.8); Neutrophils % 74.9 % (37.0-80.0); Platelet Count 222 K/mm3 (142-424); Red Blood Count 3.76 M/mm3 (4.20-5.40); Red Cell Distribution Width 14.6 % (11.5-17.5)
[2019-07-30 22:14] LABS: Anion Gap 10.6 mEq/L (5-15); Blood Urea Nitrogen 7 mg/dl (7-17); Calcium 9.2 mg/dl (8.4-10.2); Carbon Dioxide 22 mmol/L (22.0-30.0); Chloride 103 mmol/L (98-107); Creatinine Clearance Estimated 208 mL/min (50-200); Estimated Glomerular Filt Rate 148 ml/min (>60); GFR (African American) 179 ML/MIN (>60); Glucose 72 mg/dl (74-100); Potassium 3.6 mmoL/L (3.5-5.1); Sodium 132 mmol/L (136-145)
[2019-07-31 01:54] LABS: POC Glucose,Bedside 77 (70-110)
--- NOTE | 2019-07-31 10:48 | HMH.HPDC ---
General - General Admission date:: 07/30/19 Discharge date: 07/31/19 *Admission Date: 07/30/19 *Chief complaint: Nausea, vomiting, contractions *History of present illness: She is a 29-year-old 5 para 3 aborta 1 who was 33 weeks gestational age. She came in with complaints of low back pain. She also had some nausea vomiting and a low-grade temperature. [facility] History I have reviewed the patient's past medical history: Yes Medical History: Reports:: Depression Denies:: Anxiety, Cancer, Diabetes Mellitus Type 1, Diabetes Mellitus Type 2, Internal Pacemaker, Migraine, MRSA, Seizures *Have you ever received a pneumonia vaccine?: No *Have you received a flu vaccine this season?: No Other Medical History: Denies: Blood Transfusion Reaction Other Surgeries: Yes: No Previous Surgery, Other (left knee). No: , Pacemaker Amputation: No Fractures: No - *Social History Smoking Status: Former smoker Tobacco Type: cigarettes # Packs/Day (cigarettes): 1 Alcohol Intake: never Substance Use Type: denies use *Occupational Status:: unemployed Housing: house Household Members: family *Travel in the last 8 weeks: None - Psychiatric History Pschychiatric History:: Reports:: Depression Denies:: Anxiety Family Hx:: No significant family history Para: 3 Review of Systems - Review of Systems Review of systems:: pertinent systems reviewed and negative unless documented below Exam Vital signs and Labs for Last 24 Hours: Temp Pulse Resp BP Pulse Ox 99.6 F 111 H 18 115/74 96 07/30/19 20:35 07/30/19 20:35 07/30/19 20:35 07/30/19 20:35 07/30/19 20:35 Laboratory Results - last 24 hr 07/30/19 20:12: Urine Color Yellow, Urine Appearance Clear, Urine pH 7.0, Ur Specific [place] 1.010, Urine Protein Negative, Urine Glucose (UA) Negative, Urine Ketones Negative, Urine Blood Trace-l, Urine Nitrate Negative, Urine Bilirubin Negative, Urine Urobilinogen 0.2, Ur Leukocyte Esterase 3+ A, Urine RBC 3-5, Urine WBC 50-100, Ur Squamous Epith Cells 5-10 07/30/19 20:12: Urine Opiates Screen Negative, Urine Methadone Screen Negative, Ur Barbituates Screen Negative, Ur Phencyclidine Scrn Negative, Ur Amphetamines Screen Negative, U Benzodiazepines Scrn Negative, Urine Cocaine Screen Negative, U Marijuana (THC) Screen Negative 07/30/19 20:12: Fibronectin Positive A 07/30/19 20:35: POC Glucose 77 07/30/19 21:00: Influenza Type A Ag Negative, Influenza Type B Ag Negative 07/30/19 21:00: WBC 9.0, RBC 3.76 L, Hgb 11.2 L, Hct 33.0 L, MCV 87.9, MCH 29.8, MCHC 33.9, RDW 14.6, Plt Count 222, MPV 8.9, Neut % (Auto) 74.9, Lymph % (Auto) 17.0, [place] % (Auto) 7.0, Eos % (Auto) 0.5, Baso % (Auto) 0.6, Neut # (Auto) 6.8, Lymph # (Auto) 1.5, [place] # (Auto) 0.6, Eos # (Auto) 0.1, Baso # (Auto) 0.1 07/30/19 21:00: Sodium 132 L, Potassium 3.6, Chloride 103, Carbon Dioxide 22, Anion Gap 10.6, BUN 7, Creatinine 0.50 L, Estimated Creat Clear 208, Estimated GFR 148, Est GFR ( Amer) 179, Glucose 72 L, Calcium 9.2 07/30/19 21:49: Blood Type O Positive, Antibody Screen Negative I & O for Last 24 hours: Intake & Output 07/28/19 07/29/19 07/30/19 07/31/19 11:59 11:59 11:59 11:59 Weight 172 lb Microbiology Reports for the Last 24 Hours: Microbiology 07/30/19 20:12 Urine,Clean Catch Urine Culture - Preliminary - Constitutional no acute distress - *Routine HEENT Exam Head: Present: normocephalic Eye: Present: EOMI, PERRL ENT: Present: mucous membranes moist - *Routine Neck Exam Present: supple, full ROM - *Routine Respiratory Exam Absent: accessory muscle use (good air entry bilaterally), wheezes, crackles - *Routine Cardiovascular Exam Present: RRR. Absent: murmur - *Routine Abdominal Exam Present: soft, normoactive bowel sounds. Absent: tenderness, rebound, guarding, mass - *Routine Rectal Exam Patient deferred: visual exam, digital exam - *Routine Exam Patient deferred: external exam, groin exam, eloy
== END 2019-07-31 11:10 | disposition home or self-care (01) ==
LOC: OBOUT 21:13 → OB 21:13
PROVIDERS: Admitting Provider Nurse Practitioner Obstetrics & Gynecology; PCP Nurse Practitioner Obstetrics & Gynecology; Visit Provider Nurse Practitioner Obstetrics & Gynecology
DX: O60.03 Preterm labor without delivery, third trimester (principal); Z3A.33 33 weeks gestation of pregnancy
CPT/HCPCS: 36415; 59025; 80048; 80305; 81001; 82731; 82962; 85025; 86850; 87086; 87275; 87276; 96360; G0378; J2405

== ENCOUNTER 2019-08-01 16:30 | Observation (INO) | payer MEDICAID, SELFPAY ==
[2019-08-01 16:49] VITALS: BMI 33.5
[2019-08-01 16:56] LABS: Basophils # 0.1 K/mm3 (0-0.2); Basophils % 0.7 % (0.1-2.0); Eosinophils % 0.3 % (0.1-12.0); Hematocrit 32.5 % (37.0-47.0); Lymphocytes # 0.8 K/mm3 (0.7-4.5); Lymphocytes % 11.6 % (10-50); Mean Corpuscular HGB Conc 33.9 g/dL (31.8-35.4); Mean Corpuscular Hemoglobin 29.9 pg (27.0-31.2); Mean Platelet Volume 9.2 fl (7.4-10.4); Monocytes # 0.4 K/mm3 (0.1-1.0); Monocytes % 5.7 % (1.7-9.3); Neutrophils # 5.5 K/mm3 (1.8-7.8); Neutrophils % 81.6 % (37.0-80.0); Platelet Count 177 K/mm3 (142-424); Red Blood Count 3.69 M/mm3 (4.20-5.40); Red Cell Distribution Width 14.6 % (11.5-17.5); White Blood Count 6.8 K/mm3 (4.8-10.8)
[2019-08-01 16:57] LABS: Microscopic, Urine URINE MICROSCOPIC (MICROSCOPIC)
[2019-08-01 16:59] LABS: Chloride 105 mmol/L (98-107); Potassium 3.7 mmoL/L (3.5-5.1); Sodium 133 mmol/L (136-145)
[2019-08-01 17:00] VITALS: BMI 34.0
[2019-08-01 17:02] LABS: Alanine Aminotransferase 60 U/L (12-78); Albumin Level 3.3 g/dl (3.5-5.0); Albumin/Globulin Ratio 1.1 (1.1-1.8); Alkaline Phosphatase 209 U/L (38-126); Anion Gap 13.7 mEq/L (5-15); Aspartate Amino Transferase 60 U/L (14-36); Bilirubin,Total 0.3 mg/dl (0.2-1.3); Blood Urea Nitrogen 5 mg/dl (7-17); Calcium 8.6 mg/dl (8.4-10.2); Carbon Dioxide 18 mmol/L (22.0-30.0); Creatinine Clearance Estimated 173 mL/min (50-200); Estimated Glomerular Filt Rate 120 ml/min (>60); GFR (African American) 145 ML/MIN (>60); Globulin 3.1 g/dL (1.3-3.2); Glucose 82 mg/dl (74-100); Total Protein,Serum 6.4 g/dl (6.3-8.2)
[2019-08-01 17:03] LABS: Activated Partial Thrombo Time 26.8 seconds (23.6-34.0); INR 0.95 (0.9-1.1); Prothrombin Time 9.9 seconds (9.4-11.8)
[2019-08-01 17:08] LABS: C-Reactive Protein 37.2 mg/L (0-4)
[2019-08-01 17:11] LABS: Appearance,Urine SL CLOUDY (Clear); Bilirubin,Urine Negative (Negative); Blood, Urine 2+ (Negative); Color,Urine YELLOW (Yellow); Glucose,Urine (UA) Negative (Negative); Ketones,Urine 1+ (Negative); Leukocyte Esterase,Urine 3+ (Negative); Nitrate,Urine Negative (Negative); Protein,Urine Negative (Negative); Specific Gravity, Urine 1.015 (1.005-1.030); Urobilinogen,Urine 0.2 EU/dl (0.2)
[2019-08-01 17:12] LABS: Trichomonas,Urine 4+ /lpf; WBC,Urine 20-50 #/hpf (0-3)
[2019-08-01 17:13] LABS: Amphetamine/Metha Screen,Urine Negative ng/ml (<1000)
[2019-08-01 17:14] LABS: Barbiturates Screen,Urine Negative ng/ml (<200)
[2019-08-01 17:15] LABS: Benzodiazepines Screen,Urine Negative ng/ml (<200); Cannabinoid Screen,Urine Negative ng/ml (<50)
[2019-08-01 17:16] LABS: Cocaine Screen,Urine Negative ng/ml (<300); Methadone Screen,Urine Negative ng/ml (<300)
[2019-08-01 17:17] LABS: Opiate Screen,Urine Negative ng/ml (<300)
[2019-08-01 17:18] LABS: Phencyclidine Screen,Urine Negative ng/ml (<25)
[2019-08-01 17:30] LABS: Fetal Fibronectin (Rapid) Positive (Negative)
[2019-08-01 17:30] LABS: Fetal Membrane Rupture (Rapid) Negative (Negative)
--- NOTE | 2019-08-01 21:40 | ECG_ITS ---
APPROVED REPORT Exam: Resting ECG HR:114 bpm ECG Measurements Heart Rate 114 AXES OR 128 P 31 QRSd 84 QRS 45 QT 316 T 19 QTc 435 <Conclusion> Sinus tachycardia Nonspecific T wave abnormality Abnormal ECG Electronically signed by : Nathaniel Huntley, 08/02/2019 20:57:53
--- NOTE | 2019-08-02 | US_ITS ---
PROCEDURE: US OB BIOPHYSICAL PROFILE CLINICAL INDICATION: Bleeding with , nausea vomiting and fever TECHNIQUE: FINDINGS: The following parameters are obtained: Average ultrasound age is Average 33weeks 6days Estimated due date by ultrasound is 09/14/2019. Estimated weight is 2,282g. This is 41 percentile the fetus is in cephalic presentation. BPD: 33 weeks 6 days OFD: 33 weeks 5 days HC: 33 weeks AC: 34 weeks 1 day FL: 33 weeks 4 days heart rate: 150bpm bpm. HC/AC: 1 Cephalic index: 0.79 FL/BPD: 0.78 FL/AC: 0.22 Amniotic fluid index: 13.26cm Qualitative AFV: 2 breathing movements: 2 Gross body movements: 2 Tone: 2 Biophysical profile score: 8 No obvious anomalies evident. Placenta: The placenta is posterior in implantation and grade 1. Cervix: Cervix is closed measuring approximately 4 cm transabdominal IMPRESSION: Live IUP at 33 weeks 6 days. All parameters correlate. Biophysical profile is 8 of 8 with normal amniotic fluid index. Please see above for detail Dictated by: Chacho Frey MD 08/02/2019 14:40 Electronically signed by Chacho Frey MD in [facility] 08/02/2019 14:40
[2019-08-02 09:02] LABS: Adenovirus,PCR Not Detected (NotDetected); Bordetella Pertussis Not Detected (NotDetected); Chlamydophila Pneumoniae, PCR Not Detected (NotDetected); Coronavirus 19, PCR Not Detected (NotDetected); Coronavirus 229E Not Detected (NotDetected); Coronavirus NL63 Not Detected (NotDetected); Coronavirus OC43 Not Detected (NotDetected); Coronovirus HKU1,PCR Not Detected (NotDetected); Human Metapneumovirus Not Detected (NotDetected); Influenza A, PCR Not Detected (NotDetected); Influenza AH1, 2009 Not Detected (NotDetected); Influenza AH1, PCR Not Detected (NotDetected); Influenza AH3,PCR Not Detected (NotDetected); Influenza B, PCR Not Detected (NotDetected); Mycoplasma Pneumoniae, PCR Not Detected (NotDected); Parainfluenza 1, PCR Not Detected (NotDetected); Parainfluenza 2, PCR Not Detected (NotDetected); Parainfluenza 3, PCR Not Detected (NotDetected); Parainfluenza 4, PCR Not Detected (NotDetected); Respiratory Syncytial Virus Not Detected (NotDetected); Rhinovirus/Enterovirus Not Detected (NotDetected)
--- NOTE | 2019-08-02 15:01 | HMH.OBAPHP ---
OB - H&P: HPI Antepartum - History of Present Illness Chief complaint: , nausea vomiting, labor, low-grade fever History of present illness: She is a 29-year-old lady at 33 weeks gestational age. She complains of nausea and vomiting. She complains of weakness. She was admitted about 3 days ago with the same complaints. She had at that time labor and was given fluids as well as IV antibiotics and oral antibiotics. She returned last night with further episodes of feeling weak and nausea and vomiting. She had a low-grade temperature around 99.5. Urinalysis revealed that she had copious trichomonads in the urine. As result of the weakness and low-grade temperature we are admitting her for observation. - History of Present Criteria for establishing EDC:: LMP confirmed by 1st trimester US care: good care Ultrasounds: normal 1st trimester US, normal mid trimester US Obstetrical complications: none [facility] History I have reviewed the patient's past medical history: Yes Medical History: Reports:: Depression Denies:: Anxiety, Cancer, Diabetes Mellitus Type 1, Diabetes Mellitus Type 2, Internal Pacemaker, Migraine, MRSA, Seizures *Have you ever received a pneumonia vaccine?: No *Have you received a flu vaccine this season?: No Other Medical History: Denies: Blood Transfusion Reaction Other Surgeries: Yes: No Previous Surgery, Other (left knee). No: , Pacemaker Amputation: No Fractures: No - *Social History Smoking Status: Former smoker Tobacco Type: cigarettes # Packs/Day (cigarettes): 1 Alcohol Intake: never Substance Use Type: denies use *Occupational Status:: other Housing: house Household Members: family *Travel in the last 8 weeks: None - Psychiatric History Pschychiatric History:: Reports:: Depression Denies:: Anxiety Family Hx:: No significant family history Para: 3 Review of Systems - Review of Systems Review of systems:: pertinent systems reviewed and negative unless documented below Meds Home Medications Medication Instructions Recorded Confirmed Type bupropion HCl 150 mg 24 hr tablet, 150 mg PO DAILY #90 tab 02/23/19 08/01/19 History extended release prenat.vits,leda,lyp-xend-beyox 1 tab PO DAILY 02/23/19 08/01/19 History buspirone 5 mg tablet 5 mg PO BID 04/27/19 08/01/19 History Ferrous Sulfate 325 mg PO DAILY 07/31/19 08/01/19 History Fluoxetine HCl [Prozac] 40 mg PO DAILY 07/31/19 08/01/19 History cephALEXin [Keflex 500mg Cap] 500 mg PO BID #10 cap 07/31/19 08/01/19 Rx Azithromycin [Z-Ramon 250mg Tab*] 250 mg PO UD DOSE PK 08/01/19 08/01/19 History Famotidine [Pepcid 20mg Tablet] 20 mg PO DAILY 08/01/19 08/01/19 History Allergies Allergy/AdvReac Type Severity Reaction Status Date / Time citalopram [From Celexa] Allergy Intermediate Verified 06/25/19 10:27 OB - H&P: Exam - Constitutional no acute distress - Routine HEENT Exam Head: Present: normocephalic Eye: Present: EOMI, PERRL ENT: Present: mucous membranes moist - Routine Neck Exam Present: supple, full ROM - Routine Respiratory Exam Absent: accessory muscle use (good air entry bilaterally), respiratory distress, wheezes, crackles - Routine Cardiovascular Exam Present: RRR. Absent: murmur - Routine Abdominal Exam Present: soft, normoactive bowel sounds. Absent: tenderness, distended, guarding - Routine Rectal Exam Patient deferred: visual exam, digital exam - Routine Exam Patient deferred: external exam, groin exam, perineal exam - Routine Extremities Exam Present: full ROM. Absent: cyanosis, edema - Routine Skin Exam Present: intact. Absent: cyanosis - Routine Neurological Exam Present: alert, oriented X3 - Routine Psychiatric Exam Present: normal affect OB - Results - Labs Labs: Short CBC 08/01/19 Range/Units 16:40 WBC 6.8 (4.8-10.8) K/mm3 Hgb 11.0 L (12.2-16.2) g/dL Hct 32.5 L (37.0-47.0) % Plt Count 177 (142-424)
[2019-08-02 21:11] LABS: Basophils # 0.1 K/mm3 (0-0.2); Basophils % 1.2 % (0.1-2.0); Eosinophils % 0.2 % (0.1-12.0); Hematocrit 30.4 % (37.0-47.0); Lymphocytes # 0.5 K/mm3 (0.7-4.5); Lymphocytes % 9.8 % (10-50); Mean Corpuscular HGB Conc 32.9 g/dL (31.8-35.4); Mean Corpuscular Hemoglobin 29.8 pg (27.0-31.2); Mean Corpuscular Volume 90.5 fl (81-99); Mean Platelet Volume 9.4 fl (7.4-10.4); Monocytes # 0.2 K/mm3 (0.1-1.0); Monocytes % 3.5 % (1.7-9.3); Neutrophils # 4.5 K/mm3 (1.8-7.8); Neutrophils % 85.2 % (37.0-80.0); Platelet Count 141 K/mm3 (142-424); Red Blood Count 3.36 M/mm3 (4.20-5.40); Red Cell Distribution Width 14.7 % (11.5-17.5); White Blood Count 5.3 K/mm3 (4.8-10.8)
[2019-08-02 21:15] LABS: MANUAL DIFFERENTIAL MANUAL DIFFERENTIAL (MANUAL DIFF)
[2019-08-02 21:47] LABS: Lymphocytes % 12 % (10-50); Neutrophils % 88 % (42-76); Total Cells Counted 100
[2019-08-02 21:50] LABS: Chloride 103 mmol/L (98-107); Ovalocytes 1+; Platelet Estimate Normal; Potassium 3.3 mmoL/L (3.5-5.1); Sodium 132 mmol/L (136-145)
[2019-08-02 21:52] LABS: Alanine Aminotransferase 70 U/L (12-78); Aspartate Amino Transferase 80 U/L (14-36); Blood Urea Nitrogen 4 mg/dl (7-17); Creatinine Clearance Estimated 174 mL/min (50-200); Estimated Glomerular Filt Rate 120 ml/min (>60); GFR (African American) 145 ML/MIN (>60)
[2019-08-02 21:53] LABS: Albumin Level 2.8 g/dl (3.5-5.0); Alkaline Phosphatase 182 U/L (38-126); Anion Gap 11.3 mEq/L (5-15); Bilirubin,Total 0.2 mg/dl (0.2-1.3); Calcium 8.5 mg/dl (8.4-10.2); Carbon Dioxide 21 mmol/L (22.0-30.0); Globulin 2.7 g/dL (1.3-3.2); Glucose 106 mg/dl (74-100); Total Protein,Serum 5.5 g/dl (6.3-8.2)
[2019-08-03 06:19] LABS: Chloride 107 mmol/L (98-107); Potassium 3.1 mmoL/L (3.5-5.1); Sodium 132 mmol/L (136-145)
[2019-08-03 06:22] LABS: Alanine Aminotransferase 72 U/L (12-78); Albumin Level 2.6 g/dl (3.5-5.0); Alkaline Phosphatase 190 U/L (38-126); Anion Gap 9.1 mEq/L (5-15); Aspartate Amino Transferase 92 U/L (14-36); Bilirubin,Total 0.3 mg/dl (0.2-1.3); Blood Urea Nitrogen 2 mg/dl (7-17); Carbon Dioxide 19 mmol/L (22.0-30.0); Creatinine Clearance Estimated 174 mL/min (50-200); Estimated Glomerular Filt Rate 120 ml/min (>60); GFR (African American) 145 ML/MIN (>60); Globulin 2.7 g/dL (1.3-3.2); Total Protein,Serum 5.3 g/dl (6.3-8.2)
[2019-08-03 06:23] LABS: Calcium 7.9 mg/dl (8.4-10.2); Glucose 86 mg/dl (74-100)
[2019-08-03 06:28] LABS: Basophils % 0.6 % (0.1-2.0); Eosinophils % 0.1 % (0.1-12.0); Hemoglobin 9.4 g/dL (12.2-16.2); Lymphocytes # 0.6 K/mm3 (0.7-4.5); Lymphocytes % 11.4 % (10-50); Mean Corpuscular HGB Conc 33.7 g/dL (31.8-35.4); Mean Corpuscular Hemoglobin 30.1 pg (27.0-31.2); Mean Corpuscular Volume 89.2 fl (81-99); Mean Platelet Volume 9.5 fl (7.4-10.4); Monocytes # 0.2 K/mm3 (0.1-1.0); Monocytes % 4.5 % (1.7-9.3); Neutrophils # 4.3 K/mm3 (1.8-7.8); Neutrophils % 83.3 % (37.0-80.0); Platelet Count 133 K/mm3 (142-424); Red Blood Count 3.14 M/mm3 (4.20-5.40); Red Cell Distribution Width 14.7 % (11.5-17.5); White Blood Count 5.1 K/mm3 (4.8-10.8)
[2019-08-03 07:25] LABS: Basophils % 0.9 % (0.1-2.0); Eosinophils % 0.1 % (0.1-12.0); Hematocrit 28.7 % (37.0-47.0); Hemoglobin 9.3 g/dL (12.2-16.2); Lymphocytes # 0.6 K/mm3 (0.7-4.5); Lymphocytes % 11.5 % (10-50); Mean Corpuscular HGB Conc 32.4 g/dL (31.8-35.4); Mean Corpuscular Hemoglobin 29.1 pg (27.0-31.2); Mean Corpuscular Volume 89.9 fl (81-99); Mean Platelet Volume 9.4 fl (7.4-10.4); Monocytes # 0.2 K/mm3 (0.1-1.0); Neutrophils % 83.5 % (37.0-80.0); Platelet Count 121 K/mm3 (142-424); Red Cell Distribution Width 14.8 % (11.5-17.5); White Blood Count 4.8 K/mm3 (4.8-10.8)
[2019-08-03 07:29] LABS: Chloride 107 mmol/L (98-107); Sodium 134 mmol/L (136-145)
[2019-08-03 07:32] LABS: Alanine Aminotransferase 68 U/L (12-78); Aspartate Amino Transferase 88 U/L (14-36); Blood Urea Nitrogen 2 mg/dl (7-17); Carbon Dioxide 19 mmol/L (22.0-30.0); Creatinine Clearance Estimated 209 mL/min (50-200); Estimated Glomerular Filt Rate 148 ml/min (>60); GFR (African American) 179 ML/MIN (>60); Uric Acid 4.3 mg/dl (2.5-6.2)
[2019-08-03 07:33] LABS: Calcium 7.9 mg/dl (8.4-10.2); Glucose 97 mg/dl (74-100)
--- NOTE | 2019-08-03 07:44 | US_ITS ---
PROCEDURE: US GALLBLADDER CLINICAL INDICATION: n/v, increased liver enzymes Nausea and vomiting, increased liver enzymes COMPARISON: No exams were available for comparison FINDINGS: Pancreas: Pancreas is not well delineated due to overlying bowel gas. Liver: Unremarkable. There is appropriate direction of blood flow within a non dilated portal vein. Right kidney: There is mild dilatation of the right renal collecting system which may be seen with physiological changes of . Gallbladder: No stones are evident. There is no gallbladder wall thickening. Common duct is normal in diameter. There is some gallbladder sludge noted. IMPRESSION: No gallstones, there is some gallbladder sludge noted which is nonspecific Dictated by: Chacho Frey MD 08/03/2019 09:38 Electronically signed by Chacho Frey MD in [facility] 08/03/2019 09:38
[2019-08-03 08:02] LABS: Activated Partial Thrombo Time 29.4 seconds (23.6-34.0); Fibrinogen 412 mg/dL (204-500); Prothrombin Time 10.4 seconds (9.4-11.8)
[2019-08-03 08:37] LABS: D-Dimer 2770 ng/mL (0-400)
--- NOTE | 2019-08-03 08:58 | HMH.ACPN2 ---
Internal Medicine - PN: Subj *Date: 08/03/19 *Time: 08:59 Interval history: She continues to have a fever this morning. It was 101. She still feels achy. All of her virus antibody tests have been negative including COVID. Her liver function tests have slightly gone up and her platelet counts have slightly gone down. Her hemoglobin has been dropping. Her D-dimers are 2700. Her liver function tests are in the high 80s today. Her platelets are 121. I suspect she may have help syndrome. The fever is still elevated and it is not clear why she continues to have a fever. We are awaiting a gallbladder ultrasound to see if she could have acute cholecystitis. Her urinalysis did not grow out any bacteria. She has also been tachycardic all night with her heart rate in the 1 20-1 30s. Her pain is resolved this morning but the right upper quadrant pain that she had yesterday could have been related to her liver and liver capsular pain. Exam Vital signs and Labs for Last 24 Hours: Laboratory Results - last 24 hr 08/02/19 08:50: Chlamy pneumoniae PCR Not detected, Adenovirus (PCR) Not detected, B. pertussis DNA (PCR) Not detected, Coronavirus OC43 (PCR) Not detected, Coronavirus HKU1 (PCR) Not detected, Coronavirus 229E (PCR) Not detected, COVID-19 PCR Not detected, Coronavirus NL63 (PCR) Not detected, Human Metapneumovir PCR Not detected, Influenza A (H1) PCR Not detected, Influ A (H1N1/09) PCR Not detected, Influenza A (H3) PCR Not detected, Influenza Type A (PCR) Not detected, Influenza Type B (PCR) Not detected, M. pneumoniae (PCR) Not detected, Parainfluenza 1 (PCR) Not detected, Parainfluenza 2 (PCR) Not detected, Parainfluenza 3 (PCR) Not detected, Parainfluenza 4 (PCR) Not detected, RSV (PCR) Not detected, Entero/Rhino (PCR) Not detected 08/02/19 20:38: WBC 5.3, RBC 3.36 L, Hgb 10.0 L, Hct 30.4 L, MCV 90.5, MCH 29.8, MCHC 32.9, RDW 14.7, Plt Count 141 L, MPV 9.4, Neut % (Auto) 85.2 H, Lymph % (Auto) 9.8 L, [place] % (Auto) 3.5, Eos % (Auto) 0.2, Baso % (Auto) 1.2, Neut # (Auto) 4.5, Lymph # (Auto) 0.5 L, [place] # (Auto) 0.2, Eos # (Auto) 0.0, Baso # (Auto) 0.1, Total Counted 100, Neutrophils % (Manual) 88 H, Lymphocytes % (Manual) 12, Platelet Estimate Normal, Ovalocytes 1+ 08/02/19 20:38: Influenza Type A Ag Negative, Influenza Type B Ag Negative 08/02/19 20:38: Sodium 132 L, Potassium 3.3 L, Chloride 103, Carbon Dioxide 21 L, Anion Gap 11.3, BUN 4 L, Creatinine 0.60, Estimated Creat Clear 174, Estimated GFR 120, Est GFR ( Amer) 145, Glucose 106 H, Calcium 8.5, Total Bilirubin 0.2, AST 80 H D, ALT 70, Alkaline Phosphatase 182 H, Total Protein 5.5 L, Albumin 2.8 L D, Globulin 2.7, Albumin/Globulin Ratio 1.0 L 08/03/19 05:48: WBC 5.1, RBC 3.14 L, Hgb 9.4 L, Hct 28.0 L, MCV 89.2, MCH 30.1, MCHC 33.7, RDW 14.7, Plt Count 133 L, MPV 9.5, Neut % (Auto) 83.3 H, Lymph % (Auto) 11.4, [place] % (Auto) 4.5, Eos % (Auto) 0.1, Baso % (Auto) 0.6, Neut # (Auto) 4.3, Lymph # (Auto) 0.6 L, [place] # (Auto) 0.2, Eos # (Auto) 0.0, Baso # (Auto) 0.0 08/03/19 05:48: Sodium 132 L, Potassium 3.1 L, Chloride 107, Carbon Dioxide 19 L, Anion Gap 9.1, BUN 2 L D, Creatinine 0.60, Estimated Creat Clear 174, Estimated GFR 120, Est GFR ( Amer) 145, Glucose 86, Calcium 7.9 L, Total Bilirubin 0.3, AST 92 H, ALT 72, Alkaline Phosphatase 190 H, Total Protein 5.3 L, Albumin 2.6 L, Globulin 2.7, Albumin/Globulin Ratio 1.0 L 08/03/19 07:10: WBC 4.8, RBC 3.20 L, Hgb 9.3 L, Hct 28.7 L, MCV 89.9, MCH 29.1, MCHC 32.4, RDW 14.8, Plt Count 121 L, MPV 9.4, Neut % (Auto) 83.5 H, Lymph % (Auto) 11.5, [place] % (Auto) 4.0, Eos % (Auto) 0.1, Baso % (Auto) 0.9, Neut # (Auto) 4.0, Lymph # (Auto) 0.6 L, [place] # (Auto) 0.2, Eos # (Auto) 0.0, Baso # (Auto) 0.0 08/03/19 07:10: PT 10.4, INR 1.00, APTT 29.4, Fibrinogen 412, D-Dimer 2770 H* 08/03/19 07:10: Sodium 134 L, Potassium 3.0 L, Chloride 107, Carbon Dioxide 19 L, Anion Gap 11.0, BUN 2 L, Creatinine 0.50 L, Estimated Creat Clear 209, Estimated GFR 148, Est GFR (
[2019-08-03 10:52] LABS: Microscopic, Urine URINE MICROSCOPIC (MICROSCOPIC)
[2019-08-03 10:54] LABS: Appearance,Urine CLEAR (Clear); Bilirubin,Urine Negative (Negative); Blood, Urine TRACE-I (Negative); Color,Urine YELLOW (Yellow); Glucose,Urine (UA) Negative (Negative); Ketones,Urine 1+ (Negative); Leukocyte Esterase,Urine 1+ (Negative); Nitrate,Urine Negative (Negative); PH,Urine 7.5 (5.0-8.5); Protein,Urine Negative (Negative); Specific Gravity, Urine 1.015 (1.005-1.030); Urobilinogen,Urine 0.2 EU/dl (0.2)
[2019-08-03 10:55] VITALS: BP 104/59; PULSE 88; RESP 20; TEMP 37.9; O2SAT 100
[2019-08-03 11:02] LABS: Bacteria,Urine 1+ /lpf
--- NOTE | 2019-08-03 11:02 | HMH.DCSUM ---
General - General Admission date:: 08/01/19 Discharge date: 08/03/19 HPI HPI: She is a 29-year-old 5 para 3 aborta 1 who is 33 and 4 weeks gestational age today. She was admitted with nausea and vomiting and general feeling of malaise. She had a low-grade temperature. She had been admitted about 48 hours prior to this with labor. Hospital Course Hospital Course: Since she had some nausea vomiting and was feeling generally unwell we admitted her. She did not have any contractions. She had a temperature that was initially 99 and has gone as high as 101 degrees. We worked her up for the flu as well as various other viruses. She had a COVID?19 test that was negative. Her urinalysis did not grow out any bacteria but she did have Trichomonas in her urine. As result of that she was started on Flagyl. She was also started on Ancef. She had blood cultures that are currently pending. Her white blood count has remained normal. She did have some right upper quadrant pain and her liver function tests are slightly elevated starting at 60 and going to 88. They have risen over the last couple of days. We did an ultrasound of her gallbladder that was completely normal. She did not have cholecystitis. Gallbladder ultrasound showed just a small amount of sludge. Platelets have also been dropping and initially started at 177 and today they are 121. Her hemoglobin has dropped from 11-9.3. She also has elevated D-dimers. I am concerned she may have HELLP syndrome. Her blood pressure has remained normal. I spoke with Dr. Reeves today at and we will transfer her to their care. She continues to have low-grade temperatures and is not clear why her temperatures are elevated. She also has significant anxiety and she has done well with Xanax 1 mg. Rhogam Administration: Not Indicated Objective Vital signs: Temp Pulse Resp BP 100.2 F H 88 20 104/59 L 08/03/19 10:55 08/03/19 10:55 08/03/19 10:55 08/03/19 10:55 no acute distress - *Routine HEENT Exam Head: Present: normocephalic Eye: Present: EOMI, PERRL ENT: Present: mucous membranes moist Results Labs on day of discharge: Labs from last 24 hours 08/03/19 08/03/19 08/03/19 10:37 07:10 07:10 WBC RBC Hgb Hct MCV MCH MCHC RDW Plt Count MPV Neut % (Auto) Lymph % (Auto) [place] % (Auto) Eos % (Auto) Baso % (Auto) Neut # (Auto) Lymph # (Auto) [place] # (Auto) Eos # (Auto) Baso # (Auto) Total Counted Neutrophils % (Manual) Lymphocytes % (Manual) Platelet Estimate Ovalocytes PT 10.4 INR 1.00 APTT 29.4 Fibrinogen 412 D-Dimer 2770 H* Sodium 134 L Potassium 3.0 L Chloride 107 Carbon Dioxide 19 L Anion Gap 11.0 BUN 2 L Creatinine 0.50 L Estimated Creat Clear 209 Estimated GFR 148 Est GFR ( Amer) 179 D Glucose 97 Uric Acid 4.3 Calcium 7.9 L Total Bilirubin AST 88 H ALT 68 Alkaline Phosphatase Total Protein Albumin Globulin Albumin/Globulin Ratio Urine Color Yellow Urine Appearance Clear Urine pH 7.5 Ur Specific [place] 1.015 Urine Protein Negative Urine Glucose (UA) Negative Urine Ketones 1+ Urine Blood Trace-i Urine Nitrate Negative Urine Bilirubin Negative Urine Urobilinogen 0.2 Ur Leukocyte Esterase 1+ A Influenza Type A Ag Influenza Type B Ag 08/03/19 08/03/19 08/03/19 07:10 05:48 05:48 WBC 4.8 5.1 RBC 3.20 L 3.14 L Hgb 9.3 L 9.4 L Hct 28.7 L 28.0 L MCV 89.9 89.2 MCH 29.1 30.1 MCHC 32.4 33.7 RDW 14.8 14.7 Plt Count 121 L 133 L MPV 9.4 9.5 Neut % (Auto) 83.5 H 83.3 H Lymph % (Auto) 11.5 11.4 [place] % (Auto) 4.0 4.5 Eos % (Auto) 0.1 0.1 Baso % (Auto) 0.9 0.6 Neut # (Auto) 4.0 4.3 Lymph # (Auto) 0.6 L 0.6 L [place] # (Auto) 0.2 0.2 Eos # (Auto) 0.0
== END 2019-08-03 11:45 | disposition short-term general hospital (02) ==
LOC: OBOUT 08-02 10:26 → OB 08-02 10:26
PROVIDERS: Admitting Provider Nurse Practitioner Obstetrics & Gynecology; PCP Nurse Practitioner Obstetrics & Gynecology; Visit Provider Nurse Practitioner Obstetrics & Gynecology
DX: O23.43 Unspecified infection of urinary tract in pregnancy, third trimester (principal); Z3A.33 33 weeks gestation of pregnancy; A59.09 Other urogenital trichomoniasis; O60.03 Preterm labor without delivery, third trimester
CPT/HCPCS: 59025; 76705; 76816; 76819; 80048; 80053; 80305; 81001; 82731; 84112; 84450; 84460; 84550; 85007; 85025; 85378; 85384; 85610; 85730; 86140; 87040; 87086; 87275; 87276; 87581; 87633; 87798; 93005; 94761; G0378; J2405; S0030

== ENCOUNTER 2020-08-13 20:21 | Emergency (ER) | payer MEDICAID, SELFPAY ==
[2020-08-13 20:22] VITALS: BP 147/88; PULSE 129; RESP 14; TEMP 37.3; O2SAT 98; BMI 33.2
--- NOTE | 2020-08-13 20:45 | CT_ITS ---
PROCEDURE INFORMATION: Exam: CT Abdomen And Pelvis With Contrast Exam date and time: 08/13/2020 8:45 PM Age: 30 years old Clinical indication: Abdominal pain; Localized; Right lower quadrant (rlq); Patient HX: Rlq pain, lower back pain, nausea TECHNIQUE: Imaging protocol: Computed tomography of the abdomen and pelvis with contrast. Radiation optimization: All CT scans at this facility use at least one of these dose optimization techniques: automated exposure control; mA and/or kV adjustment per patient size (includes targeted exams where dose is matched to clinical indication); or iterative reconstruction. Contrast material: ISOVUE; Contrast volume: 66 ml; Contrast route: IV; COMPARISON: US GALLBLADDER 08/03/2019 8:59 AM FINDINGS: Liver: Normal. No mass. Gallbladder and bile ducts: Normal. No calcified stones. No ductal dilation. Pancreas: Normal. No ductal dilation. Spleen: Normal. No splenomegaly. Adrenal glands: Normal. No mass. Kidneys and ureters: Normal. No hydronephrosis. Stomach and bowel: Unremarkable. No obstruction. No mucosal thickening. Appendix: No evidence of appendicitis. Intraperitoneal space: Small amount of physiologic free fluid in the pelvis. Vasculature: Unremarkable. No abdominal aortic aneurysm. Lymph nodes: Unremarkable. No enlarged lymph nodes. Urinary bladder: Unremarkable as visualized. Reproductive: Unremarkable as visualized. Bones/joints: Unremarkable. No acute fracture. Soft tissues: Unremarkable. IMPRESSION: Small amount of physiologic free fluid in the pelvis. No additional acute findings in the abdomen pelvis .
[2020-08-13 20:52] LABS: Microscopic, Urine URINE MICROSCOPIC (MICROSCOPIC)
[2020-08-13 20:59] LABS: Appearance,Urine CLEAR (Clear); Blood, Urine 2+ (Negative); Color,Urine YELLOW (Yellow); Glucose,Urine (UA) Negative (Negative); Ketones,Urine 3+ (Negative); Leukocyte Esterase,Urine Negative (Negative); Nitrate,Urine Negative (Negative); Protein,Urine TRACE (Negative); Specific Gravity, Urine >= 1.030 (1.005-1.030); Urobilinogen,Urine 0.2 EU/dl (0.2)
[2020-08-13 21:01] LABS: Urine Pregnancy, HCG Qual. Negative (Negative)
[2020-08-13 21:02] LABS: Alanine Aminotransferase 26 U/L (12-78); Albumin Level 4.7 g/dl (3.5-5.0); Albumin/Globulin Ratio 1.6 (1.1-1.8); Alkaline Phosphatase 94 U/L (38-126); Amylase 55 U/L (30-110); Aspartate Amino Transferase 38 U/L (14-36); Bilirubin,Total 0.5 mg/dl (0.2-1.3); Blood Urea Nitrogen 15 mg/dl (7-17); Calcium 9.9 mg/dl (8.4-10.2); Carbon Dioxide 25 mmol/L (22.0-30.0); Creatinine Clearance Estimated 127 mL/min (50-200); Estimated Glomerular Filt Rate 85 ml/min (>60); GFR (African American) 103 ML/MIN (>60); Glucose 98 mg/dl (74-100); Lipase 120 U/L (23-300); Potassium 3.4 mmoL/L (3.5-5.1); Sodium 139 mmol/L (136-145); Total Protein,Serum 7.7 g/dl (6.3-8.2)
[2020-08-13 21:04] LABS: Basophils # 0.1 K/mm3 (0-0.2); Basophils % 1.1 % (0.1-2.0); Eosinophils # 0.2 K/mm3 (0.0-0.4); Eosinophils % 1.9 % (0.1-12.0); Hematocrit 43.3 % (37.0-47.0); Hemoglobin 13.7 g/dL (12.2-16.2); Lymphocytes # 2.5 K/mm3 (0.7-4.5); Lymphocytes % 30.2 % (10-50); Mean Corpuscular HGB Conc 31.8 g/dL (31.8-35.4); Mean Corpuscular Hemoglobin 29.1 pg (27.0-31.2); Mean Corpuscular Volume 91.7 fl (81-99); Mean Platelet Volume 8.3 fl (7.4-10.4); Monocytes # 0.5 K/mm3 (0.1-1.0); Monocytes % 5.6 % (1.7-9.3); Neutrophils # 5.2 K/mm3 (1.8-7.8); Neutrophils % 61.2 % (37.0-80.0); Platelet Count 275 K/mm3 (142-424); Red Blood Count 4.71 M/mm3 (4.20-5.40); Red Cell Distribution Width 13.7 % (11.5-17.5); White Blood Count 8.4 K/mm3 (4.8-10.8)
[2020-08-13 21:07] LABS: Bilirubin,Urine Negative (Negative)
[2020-08-13 21:08] LABS: C-Reactive Protein 12.4 mg/L (0-4)
[2020-08-13 21:12] LABS: Calcium Oxalate Crystals,Urine 1+ /lpf; WBC,Urine Occasional #/hpf (0-3)
[2020-08-13 21:12] LABS: Anion Gap 12.4 mEq/L (5-15); Chloride 105 mmol/L (98-107)
[2020-08-13 21:22] LABS: Procalcitonin 0.039 ng/mL (0.0-2.0)
[2020-08-13 21:23] LABS: Erythrocyte Sedimentation Rate 21 mm/hr (0-20)
--- NOTE | 2020-08-13 21:49 | HMH.EDNVD ---
ED Disposition Clinical Impression: Flank pain, acute Disposition: Home, Self-Care Condition on Discharge: Good Instructions: DI for Flank Pain Additional Instructions: see pcp for follow up Referrals: Hieu Dowling MD [Primary Care Provider] - - Critical Care Critical Care Time: No Attestation: On 08/13/20, the high probability of a clinically significant, sudden or life threatening deterioration of the following system(s) required my full and direct attention, intervention and personal management. The time I documented below is in addition to time spent performing reported procedures but includes the following listed in this critical care notation. Medical Decision Making - Medical Records Medical records reviewed: Yes: I reviewed the patient's medical records. - Rolo Inquiry Pt receiving controlled substance: No Vital Signs: 08/13/20 20:22 Temperature 99.2 F Temperature Source Oral Pulse Rate [Right] 129 H Respiratory Rate 14 Blood Pressure [Right Arm] 147/88 H Blood Pressure Mean [Right Arm] 107 02 Sat by Pulse Oximetry 98 - Lab Data Lab results reviewed: Yes: I reviewed the patient's lab results. Lab Results 08/13/20 20:25: Urine Color Yellow, Urine Appearance Clear, Urine pH 6.0, Ur Specific [place] >= 1.030, Urine Protein Trace, Urine Glucose (UA) Negative, Urine Ketones 3+, Urine Blood 2+, Urine Nitrate Negative, Urine Bilirubin Negative, Urine Urobilinogen 0.2, Ur Leukocyte Esterase Negative, Urine RBC 5-10, Urine WBC Occasional, Ur Squamous Epith Cells 5-10, Calcium Oxalate Crystal 1+, Urine Bacteria None 08/13/20 20:25: Urine HCG, Qual Negative 08/13/20 20:30: WBC 8.4, RBC 4.71, Hgb 13.7, Hct 43.3, MCV 91.7, MCH 29.1, MCHC 31.8, RDW 13.7, Plt Count 275, MPV 8.3, Neut % (Auto) 61.2, Lymph % (Auto) 30.2, [place] % (Auto) 5.6, Eos % (Auto) 1.9, Baso % (Auto) 1.1, Neut # (Auto) 5.2, Lymph # (Auto) 2.5, [place] # (Auto) 0.5, Eos # (Auto) 0.2, Baso # (Auto) 0.1, ESR 21 H 08/13/20 20:30: Sodium 139, Potassium 3.4 L, Chloride 105, Carbon Dioxide 25, Anion Gap 12.4, BUN 15, Creatinine 0.80, Estimated Creat Clear 127, Estimated GFR 85, Est GFR ( Amer) 103, Glucose 98, Calcium 9.9, Total Bilirubin 0.5, AST 38 H, ALT 26, Alkaline Phosphatase 94, C-Reactive Protein 12.4 H, Total Protein 7.7 D, Albumin 4.7, Globulin 3.0, Albumin/Globulin Ratio 1.6, Amylase 55, Lipase 120, Procalcitonin 0.039 Result diagrams: 08/13/20 20:30 08/13/20 20:30 Orders (Tests/Meds): ED MEDICATIONS Generic Name Dose Route Start Last Admin Trade Name Freq PRN Reason Stop Dose Admin Sodium Chloride 1,000 mls @ 999 mls/hr 08/13/20 20:45 08/13/20 21:25 Sod Chlor 0.9% 1000ml Bag IV 08/13/20 21:45 999 mls/hr .Q1H1M JEFF Administration Sodium Chloride 8 ml 08/13/20 20:43 Sodium Chloride 0.9% 10ml Vial IV 09/12/20 20:42 NEEDED PRN dilute pepcid Discontinued Medications Generic Name Dose Route Start Last Admin Trade Name Freq PRN Reason Stop Dose Admin Famotidine 20 mg 08/13/20 20:43 08/13/20 21:25 Famotidine 20mg/2ml Vial IV 08/13/20 20:44 20 mg ONCE ONE Administration Iopamidol 66 ml 08/13/20 21:35 08/13/20 21:36 Iopamidol-370 (76%);100ml Bottle IV 08/13/20 21:36 66 ml ONCE ONE Administration Ketorolac Tromethamine 30 mg 08/13/20 20:43 08/13/20 21:25 Ketorolac 30mg/Ml Vial IV 08/13/20 20:44 30 mg ONCE ONE Administration Metoclopramide HCl 10 mg 08/13/20 20:43 08/13/20 21:25 Metoclopramide Hcl 10mg/2ml Vial IVP 08/13/20 20:44 10 mg ONCE ONE Administration Ondansetron HCl 4 mg 08/13/20 21:26 08/13/20 21:29 Ondansetron 4mg/2ml Vial IV 08/13/20 21:27 4 mg ONCE ONE Administration Sodium Chloride 10 ml 08/13/20 21:35 08/13/20 21:36 Sodium Chloride 0.9% 10ml Syr (Rad Only) IV 08/13/20 21:36 10 ml ONCE ONE Administration - CT Data CT Scan: Abdomen, Pelvis Time Received: 22:[address] Reviewed: Yes: I have viewed the
[2020-08-13 22:27] VITALS: BP 134/75; PULSE 90; RESP 14; TEMP 37.1; O2SAT 98
== END 2020-08-13 22:29 | disposition home or self-care (01) ==
PROVIDERS: Emergency Provider Emergency Medicine; PCP Emergency Medicine
DX: R10.31 Right lower quadrant pain (principal); F32.9 Major depressive disorder, single episode, unspecified; E03.9 Hypothyroidism, unspecified
CPT/HCPCS: 74177; 80053; 81001; 81025; 82150; 83690; 84145; 85025; 85651; 86140; 96365; 96375; 99283; J2405; Q9967

== ENCOUNTER → 2020-08-15 13:58 | Outpatient (CLI) | payer MEDICAID, SELFPAY ==
[2020-08-15 14:23] LABS: Chloride 104 mmol/L (98-107); Potassium 4.1 mmoL/L (3.5-5.1); Sodium 138 mmol/L (136-145)
[2020-08-15 14:26] LABS: Alanine Aminotransferase 22 U/L (12-78); Albumin Level 4.6 g/dl (3.5-5.0); Albumin/Globulin Ratio 1.8 (1.1-1.8); Alkaline Phosphatase 90 U/L (38-126); Anion Gap 13.1 mEq/L (5-15); Aspartate Amino Transferase 30 U/L (14-36); Bilirubin,Total 0.4 mg/dl (0.2-1.3); Blood Urea Nitrogen 15 mg/dl (7-17); Carbon Dioxide 25 mmol/L (22.0-30.0); Estimated Glomerular Filt Rate 119 ml/min (>60); GFR (African American) 144 ML/MIN (>60); Globulin 2.6 g/dL (1.3-3.2); Total Protein,Serum 7.2 g/dl (6.3-8.2)
[2020-08-15 14:27] LABS: Calcium 9.4 mg/dl (8.4-10.2); Glucose 89 mg/dl (74-100)
[2020-08-15 14:45] LABS: Free T4 (Free Thyroxine) 2.05 ng/dl (0.78-2.19)
[2020-08-15 15:00] LABS: Thyroid Stimulating Hormone 0.12 uIU/mL (0.465-4.68)
== END ==
PROVIDERS: Visit Provider Emergency Medicine
DX: R10.9 Unspecified abdominal pain (principal); E66.9 Obesity, unspecified; Z68.36 Body mass index [BMI] 36.0-36.9, adult
CPT/HCPCS: 80053; 84439; 84443

== ENCOUNTER → 2020-11-21 17:33 | Outpatient (CLI) | payer MEDICAID, SELFPAY ==
[2020-11-21 19:31] LABS: HCG,Quantitative < 2 mIU/ml (0-5.42)
== END ==
PROVIDERS: Visit Provider Emergency Medicine
DX: Z32.00 Encounter for pregnancy test, result unknown (principal)
CPT/HCPCS: 84702

== ENCOUNTER → 2020-12-19 15:12 | Outpatient (CLI) | payer MEDICAID, SELFPAY | PROVIDERS: PCP Emergency Medicine; Visit Provider Nurse Practitioner | DX: Z20.822 Contact with and (suspected) exposure to COVID-19 (principal) | CPT/HCPCS: C9803; U0003; U0005 ==

== ENCOUNTER → 2021-01-03 14:34 | Outpatient (CLI) | payer MEDICAID, SELFPAY ==
[2021-01-03 15:16] LABS: Benzodiazepines Screen,Urine Negative ng/ml (<200)
[2021-01-03 15:17] LABS: Amphetamine/Metha Screen,Urine Positive ng/ml (<1000); Barbiturates Screen,Urine Negative ng/ml (<200)
[2021-01-03 15:18] LABS: Cannabinoid Screen,Urine Negative ng/ml (<50)
[2021-01-03 15:19] LABS: Cocaine Screen,Urine Negative ng/ml (<300); Methadone Screen,Urine Negative ng/ml (<300)
[2021-01-03 15:20] LABS: Opiate Screen,Urine Negative ng/ml (<300)
[2021-01-03 15:21] LABS: Phencyclidine Screen,Urine Negative ng/ml (<25)
== END ==
PROVIDERS: Visit Provider Emergency Medicine
DX: Z79.899 Other long term (current) drug therapy (principal)
CPT/HCPCS: 80305

== ENCOUNTER → 2021-02-28 14:14 | Outpatient (CLI) | payer MEDICAID, SELFPAY ==
[2021-02-28 15:16] LABS: Amphetamine/Metha Screen,Urine Positive ng/ml (<1000); Barbiturates Screen,Urine Negative ng/ml (<200)
[2021-02-28 15:17] LABS: Benzodiazepines Screen,Urine Negative ng/ml (<200); Cannabinoid Screen,Urine Negative ng/ml (<50)
[2021-02-28 15:18] LABS: Cocaine Screen,Urine Negative ng/ml (<300)
[2021-02-28 15:19] LABS: Methadone Screen,Urine Negative ng/ml (<300); Opiate Screen,Urine Negative ng/ml (<300)
[2021-02-28 15:20] LABS: Phencyclidine Screen,Urine Negative ng/ml (<25)
== END ==
PROVIDERS: Visit Provider Emergency Medicine
DX: F90.9 Attention-deficit hyperactivity disorder, unspecified type (principal)
CPT/HCPCS: 80305

== ENCOUNTER → 2021-04-30 15:05 | Outpatient (CLI) | payer MEDICAID, SELFPAY ==
[2021-04-30 15:19] LABS: Basophils # 0.1 K/mm3 (0-0.2); Basophils % 0.8 % (0.1-2.0); Eosinophils # 0.2 K/mm3 (0.0-0.4); Eosinophils % 2.1 % (0.1-12.0); Hematocrit 41.6 % (37.0-47.0); Hemoglobin 13.6 g/dL (12.2-16.2); Lymphocytes # 2.6 K/mm3 (0.7-4.5); Lymphocytes % 36.4 % (10-50); Mean Corpuscular HGB Conc 32.7 g/dL (31.8-35.4); Mean Corpuscular Hemoglobin 31.5 pg (27.0-31.2); Mean Corpuscular Volume 96.3 fl (81-99); Mean Platelet Volume 9.2 fl (7.4-10.4); Monocytes # 0.4 K/mm3 (0.1-1.0); Monocytes % 5.5 % (1.7-9.3); Neutrophils # 3.9 K/mm3 (1.8-7.8); Neutrophils % 55.1 % (37.0-80.0); Platelet Count 342 K/mm3 (142-424); Red Blood Count 4.32 M/mm3 (4.20-5.40)
[2021-04-30 15:21] LABS: Alanine Aminotransferase 13 U/L (12-78); Albumin Level 4.6 g/dl (3.5-5.0); Albumin/Globulin Ratio 1.9 (1.1-1.8); Alkaline Phosphatase 75 U/L (38-126); Anion Gap 11.6 mEq/L (5-15); Aspartate Amino Transferase 24 U/L (14-36); Bilirubin,Total 0.4 mg/dl (0.2-1.3); Blood Urea Nitrogen 13 mg/dl (7-17); Calcium 9.9 mg/dl (8.4-10.2); Carbon Dioxide 29 mmol/L (22.0-30.0); Chloride 104 mmol/L (98-107); Cholesterol 176 mg/dl (140-200); Estimated Glomerular Filt Rate 99 ml/min (>60); GFR (African American) 120 ML/MIN (>60); Globulin 2.4 g/dL (1.3-3.2); Glucose 84 mg/dl (74-100); HDL Cholesterol 44 mg/dl (40-60); Potassium 4.6 mmoL/L (3.5-5.1); Sodium 140 mmol/L (136-145); Triglycerides 121 mg/dl (30-150); VLDL Cholesterol 24 mg/dL (0-40)
[2021-04-30 15:31] LABS: Amphetamine/Metha Screen,Urine Positive ng/ml (<1000)
[2021-04-30 15:32] LABS: Barbiturates Screen,Urine Negative ng/ml (<200); Benzodiazepines Screen,Urine Negative ng/ml (<200)
[2021-04-30 15:33] LABS: Cannabinoid Screen,Urine Negative ng/ml (<50); Cocaine Screen,Urine Negative ng/ml (<300)
[2021-04-30 15:34] LABS: Methadone Screen,Urine Negative ng/ml (<300)
[2021-04-30 15:35] LABS: Opiate Screen,Urine Negative ng/ml (<300)
[2021-04-30 15:37] LABS: 25-OH Vitamin D, Total 44.1 ng/mL (30-100); Phencyclidine Screen,Urine Negative ng/ml (<25)
[2021-04-30 15:38] LABS: Free T4 (Free Thyroxine) 1.73 ng/dl (0.78-2.19)
[2021-04-30 15:52] LABS: Thyroid Stimulating Hormone 0.12 uIU/mL (0.465-4.68)
== END ==
PROVIDERS: Visit Provider Emergency Medicine
DX: E66.3 Overweight (principal); E55.9 Vitamin D deficiency, unspecified; Z79.899 Other long term (current) drug therapy; Z68.30 Body mass index [BMI] 30.0-30.9, adult
CPT/HCPCS: 80053; 80061; 80305; 82306; 84439; 84443; 85025

== ENCOUNTER 2021-05-30 12:38 | Emergency (ER) | payer MEDICAID, SELFPAY ==
[2021-05-30 12:48] VITALS: BMI 29.2
[2021-05-30 12:52] LABS: Microscopic, Urine URINE MICROSCOPIC (MICROSCOPIC)
[2021-05-30 12:58] LABS: Appearance,Urine CLEAR (Clear); Bilirubin,Urine Negative (Negative); Blood, Urine TRACE-I (Negative); Color,Urine YELLOW (Yellow); Glucose,Urine (UA) Negative (Negative); Ketones,Urine Negative (Negative); Leukocyte Esterase,Urine Negative (Negative); Nitrate,Urine Negative (Negative); PH,Urine 7.5 (5.0-8.5); Protein,Urine TRACE (Negative); Specific Gravity, Urine 1.015 (1.005-1.030); Urobilinogen,Urine 0.2 EU/dl (0.2)
[2021-05-30 13:00] VITALS: BP 117/63; PULSE 101; RESP 17; TEMP 36.6; O2SAT 99; BMI 29.2
[2021-05-30 13:09] LABS: Basophils # 0.1 K/mm3 (0-0.2); Basophils % 0.6 % (0.1-2.0); Eosinophils # 0.1 K/mm3 (0.0-0.4); Eosinophils % 0.7 % (0.1-12.0); Hematocrit 48.8 % (37.0-47.0); Hemoglobin 15.5 g/dL (12.2-16.2); Lymphocytes # 0.4 K/mm3 (0.7-4.5); Lymphocytes % 4.2 % (10-50); Mean Corpuscular HGB Conc 31.7 g/dL (31.8-35.4); Mean Corpuscular Hemoglobin 31.1 pg (27.0-31.2); Mean Corpuscular Volume 98.1 fl (81-99); Mean Platelet Volume 8.8 fl (7.4-10.4); Monocytes # 0.2 K/mm3 (0.1-1.0); Monocytes % 1.9 % (1.7-9.3); Neutrophils # 9.1 K/mm3 (1.8-7.8); Neutrophils % 92.6 % (37.0-80.0); Platelet Count 294 K/mm3 (142-424); Red Blood Count 4.98 M/mm3 (4.20-5.40); White Blood Count 9.8 K/mm3 (4.8-10.8)
[2021-05-30 13:12] LABS: Chloride 101 mmol/L (98-107); Sodium 136 mmol/L (136-145)
[2021-05-30 13:13] LABS: Bacteria,Urine 1+ /lpf; Mucus,Urine 2+ /lpf; Squamous Epithelial Cell,Urine Occasional #/hpf (0-5); WBC,Urine Occasional #/hpf (0-3)
[2021-05-30 13:14] LABS: Alanine Aminotransferase 19 U/L (12-78); Aspartate Amino Transferase 30 U/L (14-36); Blood Urea Nitrogen 19 mg/dl (7-17); Creatinine Clearance Estimated 111 mL/min (50-200); Estimated Glomerular Filt Rate 85 ml/min (>60); GFR (African American) 103 ML/MIN (>60)
[2021-05-30 13:15] LABS: Albumin Level 4.8 g/dl (3.5-5.0); Albumin/Globulin Ratio 1.5 (1.1-1.8); Alkaline Phosphatase 82 U/L (38-126); Calcium 8.4 mg/dl (8.4-10.2); Carbon Dioxide 26 mmol/L (22.0-30.0); Globulin 3.1 g/dL (1.3-3.2); Glucose 123 mg/dl (74-100); Lipase 50 U/L (23-300); Total Protein,Serum 7.9 g/dl (6.3-8.2)
[2021-05-30 13:22] LABS: MANUAL DIFFERENTIAL MANUAL DIFFERENTIAL (MANUAL DIFF)
[2021-05-30 13:30] VITALS: BP 128/81; PULSE 95; O2SAT 99
[2021-05-30 13:45] LABS: HCG Qualitative, Serum Negative (Negative)
--- NOTE | 2021-05-30 13:45 | HMH.EDGENADL ---
ED Disposition Clinical Impression: Gastroenteritis Disposition: Home, Self-Care Condition on Discharge: Good Referrals: Hieu Dowling MD [Primary Care Provider] - - Critical Care Critical Care Time: No Attestation: On 05/30/21, the high probability of a clinically significant, sudden or life threatening deterioration of the following system(s) required my full and direct attention, intervention and personal management. The time I documented below is in addition to time spent performing reported procedures but includes the following listed in this critical care notation. Medical Decision Making - Medical Records Medical records reviewed: Yes: I reviewed the patient's medical records. - Rolo Inquiry Pt receiving controlled substance: No Vital Signs: 05/30/21 13:00 05/30/21 13:30 05/30/21 14:00 Temperature 97.8 F Temperature Source Oral Pulse Rate 95 H 100 H Pulse Rate [Left Radial] 101 H Respiratory Rate 17 Blood Pressure 128/81 142/74 H Blood Pressure [Right Arm] 117/63 Blood Pressure Mean [Right Arm] 81 02 Sat by Pulse Oximetry 99 99 100 Oxygen Delivery Method Room Air - Lab Data Lab results reviewed: Yes: I reviewed the patient's lab results. Lab Results 05/30/21 12:50: Urine Color Yellow, Urine Appearance Clear, Urine pH 7.5, Ur Specific [place] 1.015, Urine Protein Trace, Urine Glucose (UA) Negative, Urine Ketones Negative, Urine Blood Trace-i, Urine Nitrate Negative, Urine Bilirubin Negative, Urine Urobilinogen 0.2, Ur Leukocyte Esterase Negative, Urine WBC Occasional, Ur Squamous Epith Cells Occasional, Urine Bacteria 1+, Urine Mucus 2+ 05/30/21 12:58: WBC 9.8, RBC 4.98, Hgb 15.5, Hct 48.8 H, MCV 98.1, MCH 31.1, MCHC 31.7 L, RDW 13.0, Plt Count 294, MPV 8.8, Neut % (Auto) 92.6 H, Lymph % (Auto) 4.2 L, [place] % (Auto) 1.9, Eos % (Auto) 0.7, Baso % (Auto) 0.6, Neut # (Auto) 9.1 H, Lymph # (Auto) 0.4 L, [place] # (Auto) 0.2, Eos # (Auto) 0.1, Baso # (Auto) 0.1, Total Counted 100, Neutrophils % (Manual) 96 H, Monocytes % (Manual) 4, Platelet Estimate Normal 05/30/21 12:58: Sodium 136, Potassium 4.0, Chloride 101, Carbon Dioxide 26, Anion Gap 13.0, BUN 19 H, Creatinine 0.80, Estimated Creat Clear 111, Estimated GFR 85, Est GFR ( Amer) 103, Glucose 123 H, Calcium 8.4, Total Bilirubin 1.0, AST 30, ALT 19, Alkaline Phosphatase 82, Total Protein 7.9, Albumin 4.8, Globulin 3.1, Albumin/Globulin Ratio 1.5, Lipase 50 05/30/21 12:58: Lactate 0.9 05/30/21 12:58: Serum HCG, Qual Negative Result diagrams: 05/30/21 12:58 05/30/21 12:58 Orders (Tests/Meds): ED MEDICATIONS Discontinued Medications Generic Name Dose Route Start Last Admin Trade Name Freq PRN Reason Stop Dose Admin Acetaminophen 1,000 mg 05/30/21 13:02 05/30/21 13:18 Acetaminophen 500mg Tab PO 05/30/21 13:03 1,000 mg ONCE ONE Administration Sodium Chloride 1,000 mls @ 999 mls/hr 05/30/21 13:00 05/30/21 13:18 Sod Chlor 0.9% 1000ml Bag IV 05/30/21 14:00 999 mls/hr .Q1H1M JEFF Administration Ketorolac Tromethamine 15 mg 05/30/21 13:02 05/30/21 13:18 Ketorolac 30mg/Ml Vial IV 05/30/21 13:03 15 mg ONCE ONE Administration Ondansetron HCl 4 mg 05/30/21 12:49 05/30/21 13:18 Ondansetron 4mg/2ml Vial IV 05/30/21 12:50 4 mg ONCE ONE Administration Medical Decision Narrative: Patient is a 31-year-old female without a significant medical history presenting for chief complaint of abdominal cramping, nausea, vomiting and diarrhea. Differential diagnosis includes, but is not limited to, viral gastroenteritis, bacterial versus viral diarrhea, food poisoning, urinary tract infection, other intra-abdominal pathology. On initial exam, patient is hemodynamically stable nontoxic-appearing. Exam of her abdomen is benign and not consistent with peritonitis. She is complaining of mild generalized cramping in the periumbilical region. She was evaluate CBC, CMP, lactate, lipase, UA, te
[2021-05-30 14:00] VITALS: BP 142/74; PULSE 100; O2SAT 100
[2021-05-30 14:07] LABS: Monocytes % 4 % (2-9); Neutrophils % 96 % (42-76); Total Cells Counted 100
[2021-05-30 14:08] LABS: Platelet Estimate Normal
--- NOTE | 2021-05-30 14:41 | PC.NURSE ---
pt dropped first odt zofran pulled. second one administered per MAR
[2021-05-30 14:44] VITALS: BP 131/84; PULSE 89; RESP 16; TEMP 36.6; O2SAT 100
== END 2021-05-30 14:47 | disposition home or self-care (01) ==
PROVIDERS: Emergency Provider Emergency Medicine; PCP Emergency Medicine
DX: K52.9 Noninfective gastroenteritis and colitis, unspecified (principal); F33.1 Major depressive disorder, recurrent, moderate; E03.9 Hypothyroidism, unspecified; F17.210 Nicotine dependence, cigarettes, uncomplicated
CPT/HCPCS: 80053; 81001; 83690; 84703; 85007; 85025; 96365; 96375; 99284; J2405

== ENCOUNTER → 2021-10-01 08:15 | Outpatient (CLI) | payer MEDICAID, SELFPAY ==
[2021-09-28 19:10] LABS: Free T4 (Free Thyroxine) 1.22 ng/dl (0.78-2.19)
[2021-09-28 19:25] LABS: Thyroid Stimulating Hormone 0.19 uIU/mL (0.465-4.68)
== END ==
PROVIDERS: Visit Provider Emergency Medicine
DX: E66.3 Overweight (principal); Z68.31 Body mass index [BMI] 31.0-31.9, adult
CPT/HCPCS: 84439; 84443

== ENCOUNTER → 2021-12-28 15:55 | Outpatient (CLI) | payer MEDICAID, SELFPAY ==
[2021-12-28 14:31] LABS: Amphetamine/Metha Screen,Urine Positive ng/ml (<1000); Barbiturates Screen,Urine Negative ng/ml (<200)
[2021-12-28 14:32] LABS: Benzodiazepines Screen,Urine Negative ng/ml (<200)
[2021-12-28 14:33] LABS: Cannabinoid Screen,Urine Negative ng/ml (<50)
[2021-12-28 14:34] LABS: Cocaine Screen,Urine Negative ng/ml (<300)
[2021-12-28 14:35] LABS: Methadone Screen,Urine Negative ng/ml (<300)
[2021-12-28 14:36] LABS: Opiate Screen,Urine Negative ng/ml (<300); Phencyclidine Screen,Urine Negative ng/ml (<25)
== END ==
PROVIDERS: PCP Emergency Medicine; Visit Provider Emergency Medicine
DX: Z79.899 Other long term (current) drug therapy (principal)
CPT/HCPCS: 80305

== ENCOUNTER → 2022-02-27 14:57 | Outpatient (CLI) | payer MEDICAID, SELFPAY ==
[2022-02-27 16:11] LABS: Amphetamine/Metha Screen,Urine Positive ng/ml (<1000); Barbiturates Screen,Urine Negative ng/ml (<200)
[2022-02-27 16:13] LABS: Benzodiazepines Screen,Urine Negative ng/ml (<200); Cannabinoid Screen,Urine Negative ng/ml (<50)
[2022-02-27 16:14] LABS: Cocaine Screen,Urine Negative ng/ml (<300)
[2022-02-27 16:15] LABS: Methadone Screen,Urine Negative ng/ml (<300); Opiate Screen,Urine Negative ng/ml (<300)
[2022-02-27 16:16] LABS: Phencyclidine Screen,Urine Negative ng/ml (<25)
== END ==
PROVIDERS: PCP Emergency Medicine; Visit Provider Emergency Medicine
DX: Z79.899 Other long term (current) drug therapy (principal)
CPT/HCPCS: 80305

== ENCOUNTER → 2022-05-01 19:16 | Outpatient (CLI) | payer MEDICAID, SELFPAY ==
[2022-05-01 16:30] LABS: Free T4 (Free Thyroxine) 1.27 ng/dl (0.78-2.19)
[2022-05-01 16:40] LABS: Thyroid Stimulating Hormone 0.74 uIU/mL (0.465-4.68)
== END ==
PROVIDERS: PCP Emergency Medicine; Visit Provider Emergency Medicine
DX: E03.9 Hypothyroidism, unspecified (principal)
CPT/HCPCS: 84439; 84443

== ENCOUNTER → 2022-05-03 09:42 | Outpatient (CLI) | payer MEDICAID, SELFPAY ==
--- NOTE | 2022-05-03 09:46 | US_ITS ---
FINAL REPORT CLINICAL HISTORY: abdominal pain FINDINGS: Sonographic images of the right upper quadrant were obtained. The pancreas is partially obscured.The liver has an unremarkable appearance.The gallbladder appears normal without evidence of gallstones.There is no evidence of biliary ductal dilatation.The common duct measures 2 mm. Limited images of the right kidney are unremarkable. IMPRESSION: Unremarkable right upper quadrant ultrasound. Reviewed, Interpreted and Dictated by Benny Martinez III, MD Transcribed by Anay Prakash Authenticated and [facility]
== END ==
PROVIDERS: PCP Emergency Medicine; Visit Provider Emergency Medicine
DX: R10.9 Unspecified abdominal pain (principal)
CPT/HCPCS: 76705

== ENCOUNTER → 2022-07-03 10:30 | Outpatient (CLI) | payer MEDICAID, SELFPAY ==
[2022-07-03 19:12] LABS: Amphetamine/Metha Screen,Urine Positive ng/ml (<1000); Barbiturates Screen,Urine Negative ng/ml (<200)
[2022-07-03 19:13] LABS: Benzodiazepines Screen,Urine Negative ng/ml (<200)
[2022-07-03 19:14] LABS: Cannabinoid Screen,Urine Positive ng/ml (<50); Cocaine Screen,Urine Negative ng/ml (<300)
[2022-07-03 19:16] LABS: Methadone Screen,Urine Negative ng/ml (<300); Opiate Screen,Urine Negative ng/ml (<300)
[2022-07-03 19:17] LABS: Phencyclidine Screen,Urine Negative ng/ml (<25)
== END ==
PROVIDERS: PCP Emergency Medicine; Visit Provider Emergency Medicine
DX: Z79.899 Other long term (current) drug therapy (principal)
CPT/HCPCS: 80305

== ENCOUNTER → 2022-09-10 13:27 | Outpatient (CLI) | payer MEDICAID, SELFPAY ==
[2022-09-10 13:12] LABS: Amphetamine/Metha Screen,Urine Negative ng/ml (<1000); Cannabinoid Screen,Urine Negative ng/ml (<50)
[2022-09-10 13:13] LABS: Barbiturates Screen,Urine Negative ng/ml (<200)
[2022-09-10 13:14] LABS: Benzodiazepines Screen,Urine Negative ng/ml (<200); Cocaine Screen,Urine Negative ng/ml (<300)
[2022-09-10 13:15] LABS: Methadone Screen,Urine Negative ng/ml (<300)
[2022-09-10 13:16] LABS: Opiate Screen,Urine Negative ng/ml (<300); Phencyclidine Screen,Urine Negative ng/ml (<25)
== END ==
PROVIDERS: PCP Emergency Medicine; Visit Provider Emergency Medicine
DX: Z79.899 Other long term (current) drug therapy (principal)
CPT/HCPCS: 80305

== ENCOUNTER → 2023-02-11 07:31 | Outpatient (CLI) | payer MEDICAID, SELFPAY ==
[2023-02-11 19:30] LABS: Amphetamine/Metha Screen,Urine Negative ng/ml (<1000)
[2023-02-11 19:32] LABS: Benzodiazepines Screen,Urine Negative ng/ml (<200); Methadone Screen,Urine Negative ng/ml (<300)
[2023-02-11 19:33] LABS: Cannabinoid Screen,Urine Negative ng/ml (<50)
[2023-02-11 19:34] LABS: Cocaine Screen,Urine Negative ng/ml (<300)
[2023-02-11 19:35] LABS: Opiate Screen,Urine Negative ng/ml (<300); Phencyclidine Screen,Urine Negative ng/ml (<25)
[2023-02-11 19:47] LABS: Barbiturates Screen,Urine Negative ng/ml (<200)
== END ==
PROVIDERS: PCP Emergency Medicine; Visit Provider Emergency Medicine
DX: F90.9 Attention-deficit hyperactivity disorder, unspecified type (principal)
CPT/HCPCS: 80305

== ENCOUNTER 2023-05-01 22:23 | Outpatient (CLI) | payer MEDICAID, SELFPAY ==
[2023-05-01 18:56] LABS: Basophils # 0.1 K/mm3 (0-0.2); Basophils % 0.7 % (0.1-2.0); Eosinophils # 0.2 K/mm3 (0.0-0.4); Eosinophils % 1.5 % (0.1-12.0); Hematocrit 44.4 % (37.0-47.0); Hemoglobin 14.9 g/dL (12.2-16.2); Lymphocytes # 2.8 K/mm3 (0.7-4.5); Lymphocytes % 26.2 % (10-50); Mean Corpuscular HGB Conc 33.5 g/dL (31.8-35.4); Mean Corpuscular Hemoglobin 32.3 pg (27.0-31.2); Mean Corpuscular Volume 96.5 fl (81-99); Mean Platelet Volume 9.4 fl (7.4-10.4); Monocytes # 0.5 K/mm3 (0.1-1.0); Monocytes % 5.1 % (1.7-9.3); Neutrophils % 66.5 % (37.0-80.0); Platelet Count 292 K/mm3 (142-424); Red Cell Distribution Width 13.9 % (11.5-17.5); White Blood Count 10.6 K/mm3 (4.8-10.8)
[2023-05-01 19:21] LABS: Alanine Aminotransferase 21 U/L (12-78); Albumin Level 4.5 g/dl (3.5-5.0); Albumin/Globulin Ratio 1.5 (1.1-1.8); Alkaline Phosphatase 104 U/L (38-126); Aspartate Amino Transferase 29 U/L (14-36); Bilirubin,Total 0.2 mg/dl (0.2-1.3); Blood Urea Nitrogen 12 mg/dl (7-17); Calcium 9.5 mg/dl (8.4-10.2); Carbon Dioxide 25 mmol/L (22.0-30.0); Chloride 103 mmol/L (98-107); Chol/HDL Ratio 5.3 (1-3.5); Cholesterol 196 mg/dl (140-200); Estimated Glomerular Filt Rate 98 ml/min (>60); GFR (African American) 118 ML/MIN (>60); Glucose 83 mg/dl (74-100); HDL Cholesterol 37 mg/dl (40-60); Sodium 138 mmol/L (136-145); Total Protein,Serum 7.5 g/dl (6.3-8.2); Triglycerides 223 mg/dl (30-150); VLDL Cholesterol 45 mg/dL (0-40)
[2023-05-01 19:32] LABS: Direct LDL Cholesterol 124.35 mg/dL (100-129)
[2023-05-01 19:40] LABS: 25-OH Vitamin D, Total 25.4 ng/mL (30-100)
[2023-05-01 19:48] LABS: Thyroid Stimulating Hormone 1.36 uIU/mL (0.465-4.68)
[2023-05-01 20:08] LABS: Vitamin B12 374 pg/mL (239-931)
== END 2023-05-01 23:59 ==
LOC: LAB.DROPOF 22:23
PROVIDERS: PCP Physician Assistant; Visit Provider Family Medicine
DX: E03.9 Hypothyroidism, unspecified (principal); E55.9 Vitamin D deficiency, unspecified; E66.9 Obesity, unspecified; Z68.35 Body mass index [BMI] 35.0-35.9, adult; Z79.899 Other long term (current) drug therapy
CPT/HCPCS: 80053; 80061; 82306; 82607; 83036; 84443; 85025

== ENCOUNTER 2024-12-13 09:50 | Outpatient (CLI) | payer MEDICAID, SELFPAY | END 2024-12-13 23:59 | disposition home or self-care (01) | PROVIDERS: Visit Provider Nurse Practitioner Obstetrics & Gynecology | DX: N92.6 Irregular menstruation, unspecified (principal); Z32.00 Encounter for pregnancy test, result unknown | CPT/HCPCS: 36415; 84144; 84702 ==

== ENCOUNTER 2024-12-13 10:38 | Outpatient (CLI) | payer MEDICAID, SELFPAY ==
--- NOTE | 2024-12-13 10:45 | US_ITS ---
PROCEDURE: US OB <= 14 WEEKS FETUS CLINICAL INDICATION: needs for dates and viability COMPARISON: No exams were available for comparison FINDINGS: Transvaginal sonographic images of the pelvis were obtained. From her last menstrual period she is 13weeks 6days. An intrauterine gestational sac is present with a pole with a crown-rump length of 1.53cm This correlates to a gestational age of 8weeks 0 days. IVA 07/25/2025 heart tones are present with an FHR of 172bpm. Yolk sac is noted. The yolk sac measures 6.4mm. The right ovary is seen and appears normal. The left ovary is seen and appears normal. There is no fluid in the cul-de-sac. IMPRESSION: 1. Viable embryo within the uterine cavity. Heart rate activity is seen. 2. Embryo measures 8 weeks 0 days and her IVA should be revised to 07/25/2025. 3. Both ovaries are seen and appear normal. 4. No fluid in the cul-de-sac. Dictated by: Narayan Olguin MD 12/13/2024 18:18 Narayan Olguin MD in OV 12/13/2024 18:18
== END 2024-12-13 23:59 | disposition home or self-care (01) ==
LOC: RAD 10:39
PROVIDERS: PCP Nurse Practitioner Obstetrics & Gynecology; Visit Provider Nurse Practitioner Obstetrics & Gynecology
DX: O36.80X0 Pregnancy with inconclusive fetal viability, not applicable or unspecified (principal); Z3A.08 8 weeks gestation of pregnancy
CPT/HCPCS: 76801

== ENCOUNTER 2025-02-27 13:24 | Emergency (ER) | payer BC, MEDICAID, SELFPAY ==
--- NOTE | 2025-02-27 | US_ITS ---
PROCEDURE INFORMATION: Exam: US , Transvaginal Exam date and time: 02/27/2025 2:23 PM Age: 34 years old Clinical indication: Lmp or gestational age (in weeks): 18w 6d; Other: Light spotting last night, lower cramping; ; PT C/O light spotting lastnight and lower abd campring - spotting has since gone away TECHNIQUE: Imaging protocol: Real-time transvaginal obstetrical ultrasound of the maternal pelvis with image documentation. Transvaginal imaging was used for better evaluation of the fetus, adnexa, and/or cervix. COMPARISON: No relevant prior studies available. FINDINGS: Gestation: Single live intrauterine . Somewhat lobulated appearance of the gestational sac. No measurements of the fetus were obtained for dating. Breech presentation. Placenta: Placenta is posterior and fundal. Question marginal cord insertion. Umbilical cord appears to insert along the superior margin of the placenta. No evidence of placental abruption. BIOPHYSICAL PROFILE: tone (BPP): heart tones detected at up to 152 bpm. MATERNAL: Uterus: Focal area of myometrial fullness is present along the anterior margin of the uterus which may correspond to uterine contraction. Underlying leiomyoma is not excluded. Cervix: Cervical length measures 4.08 cm. Cervix is closed. Right ovary/adnexa: Right ovary measures 2.1 x 2.1 x 2.7 cm. Color and Doppler flow is documented within the right ovary. Left ovary/adnexa: Left ovary measures 2.3 x 1.3 x 2.0 cm. Doppler flow is documented within the left ovary. Intraperitoneal space: No free fluid. Other findings: No adnexal mass. IMPRESSION: 1. Single live intrauterine . heart motion detected at up to 152 bpm. Breech presentation. 2. Placenta is posterior and fundal. Question marginal insertion of the umbilical cord. No evidence of placental abruption. 3. Lobulated appearance of the gestational sac which may be secondary to overlying myometrial contraction. 4. Cervical length measures 4.08 cm. Cervix is closed. 5. Ovaries appear unremarkable.
[2025-02-27 13:27] VITALS: BP 129/84; PULSE 87; RESP 20; TEMP 36.9; O2SAT 99; BMI 29.2
--- NOTE | 2025-02-27 13:34 | PC.NURSE ---
Patient in room. RN at bedside.
[2025-02-27 13:36] VITALS: BP 138/79; PULSE 95; O2SAT 99
[2025-02-27 13:47] LABS: Microscopic, Urine URINE MICROSCOPIC (MICROSCOPIC)
[2025-02-27 14:00] VITALS: PULSE 94; O2SAT 98
[2025-02-27 14:00] LABS: Bilirubin,Urine Negative (Negative); Color,Urine YELLOW (Yellow); Glucose,Urine (UA) Negative (Negative); Ketones,Urine Negative (Negative); Leukocyte Esterase,Urine Negative (Negative); PH,Urine 7.5 (5.0-8.5); Protein,Urine Negative (Negative); Specific Gravity, Urine 1.015 (1.005-1.030); Urobilinogen,Urine 0.2 EU/dl (0.2)
[2025-02-27 14:15] VITALS: PULSE 98; O2SAT 98
[2025-02-27 14:23] LABS: Hematocrit 37.3 % (37.0-47.0); Hemoglobin 12.5 g/dL (12.2-16.2); Immature Granulocytes % 0.8 %; Mean Corpuscular HGB Conc 33.5 g/dL (31.8-35.4); Mean Corpuscular Hemoglobin 30.8 pg (27.0-31.2); Mean Corpuscular Volume 91.9 fl (81-99); Nucleated Red Blood Cells % 0 %; Platelet Count 256 K/mm3 (142-424); Red Blood Count 4.06 M/mm3 (4.20-5.40); Red Cell Distribution Width-SD 43.3 fL; White Blood Count 9.4 K/mm3 (4.8-10.8)
[2025-02-27 14:26] VITALS: BP 132/80; PULSE 92; O2SAT 97
[2025-02-27 14:30] LABS: Alanine Aminotransferase 22 U/L (12-78); Albumin Level 4.1 g/dl (3.5-5.0); Albumin/Globulin Ratio 1.2 (1.1-1.8); Alkaline Phosphatase 73 U/L (38-126); Anion Gap 8.7 mEq/L (5-15); Aspartate Amino Transferase 28 U/L (14-36); Bilirubin,Total 0.4 mg/dl (0.2-1.3); Blood Urea Nitrogen 8 mg/dl (7-17); Carbon Dioxide 21 mmol/L (22.0-30.0); Chloride 104 mmol/L (98-107); Creatinine Clearance Estimated 145 mL/min (50-200); Creatinine,Serum 0.60 mg/dl (0.52-1.04); Estimated Glomerular Filt Rate 116 ml/min (>60); GFR (African American) 140 ML/MIN (>60); Globulin 3.5 g/dL (1.3-3.2); Potassium 3.7 mmoL/L (3.5-5.1); Sodium 130 mmol/L (136-145); Total Protein,Serum 7.6 g/dl (6.3-8.2)
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
[2025-02-27 14:42] LABS: Calcium 9.2 mg/dl (8.4-10.2); Glucose 84 mg/dl (74-100)
[2025-02-27 14:49] LABS: Amorphous Sediment,Urine 2+ /lpf; Bacteria,Urine 1+ /lpf; Squamous Epithelial Cell,Urine Occasional #/hpf (0-5)
[2025-02-27 16:25] VITALS: BP 132/80; PULSE 87; RESP 20; TEMP 36.9; O2SAT 97
== END 2025-02-27 16:26 | disposition home or self-care (01) ==
PROVIDERS: Emergency Provider Student in an Organized Health Care Education/Training Program
DX: O20.9 Hemorrhage in early pregnancy, unspecified (principal); Z3A.18 18 weeks gestation of pregnancy; O26.892 Other specified pregnancy related conditions, second trimester; R10.30 Lower abdominal pain, unspecified; O99.332 Smoking (tobacco) complicating pregnancy, second trimester; F17.210 Nicotine dependence, cigarettes, uncomplicated; Z79.899 Other long term (current) drug therapy
CPT/HCPCS: 76817; 80053; 81001; 85025; 86850; 99284

== ENCOUNTER 2025-03-10 09:20 | Outpatient (CLI) | payer BC, MEDICAID, SELFPAY ==
--- NOTE | 2025-03-10 09:30 | US_ITS ---
PROCEDURE: US OB /MATERNAL DETAIL CLINICAL INDICATION: please schedule 20wk anatomy scan in 3wks COMPARISON: US US OB <= 14 WEEKS FETUS from 12/13/2024 US US OB TRANSVAGINAL from 02/27/2025 FINDINGS: Transabdominal sonographic images of the pelvis were obtained. From her established due date she is 20 weeks 3 days. Single viable intrauterine gestation. Breech position. Placenta: Posterolateralplacenta grade 1. There is a marginal insertion of the cord into the placenta. There is an average amount of fluid. The cervix appears satisfactory. Complete survey performed and was unremarkable on the submitted images as in PACS. No discrete anomalies identified on survey imaging by technologist. Active fetus. Three-vessel cord with satisfactory umbilical cord insertion. 4- chamber heart noted. Situs, aortic arch, LVOT, RVOT, three-vessel view appear normal. Survey of brain & ventricles Unremarkable. Cerebellum, thalamus, choroid plexus, cisterna magna appear normal. Face and neck survey unremarkable. Profile, nasion, lips and nose appeared normal. Diaphragm and chest views unremarkable. Abdomen: Both kidneys noted and unremarkable. Stomach and bladder noted and satisfactory. Spine: Survey of the spine satisfactory with no anomalies identified nor imaged. Cervical, thoracic, lower spine appear normal. Both arms and legs noted. Amniotic Fluid: Adequate. MVP 4.52 cm Measurements: Average ultrasound age 20weeks 2days. Estimated due date by ultrasound age 0407/26/2025. Estimated weight 337g BPD = 20weeks 2days HC = 20weeks 0 days AC = 20weeks 4days FL = 20weeks 0 days Growth Percentile= 32 Heart Rate = 140bpm Cerebellum = 20weeks Humerus = 21weeks 4days HC/AC is 1.14 FL/BPD is 0.68 FL/AC is 0.21 IMPRESSION: 1. Viable fetus in the breech presentation with a posterolateral placenta grade 1. 2. There is a marginal insertion of the umbilical cord into the placenta superiorly. Suggest follow-up scan at 28 weeks. 3. The fluid is within normal limits with an MVP 4.52 cm. 4. Anatomical scan appears normal. 5. biometry is consistent with dates. Dictated by: Narayan Olguin MD 03/10/2025 13:51 Narayan Olguin MD in [facility] 03/10/2025 13:51
== END 2025-03-10 23:59 | disposition home or self-care (01) ==
LOC: RAD 09:20
PROVIDERS: PCP Family Medicine; Visit Provider Nurse Practitioner Obstetrics & Gynecology
DX: O32.1XX0 Maternal care for breech presentation, not applicable or unspecified (principal); O43.892 Other placental disorders, second trimester; O99.332 Smoking (tobacco) complicating pregnancy, second trimester; O99.212 Obesity complicating pregnancy, second trimester; O99.282 Endocrine, nutritional and metabolic diseases complicating pregnancy, second trimester; E66.9 Obesity, unspecified; E03.9 Hypothyroidism, unspecified; E87.6 Hypokalemia; Z36.3 Encounter for antenatal screening for malformations; Z68.35 Body mass index [BMI] 35.0-35.9, adult; Z3A.20 20 weeks gestation of pregnancy
CPT/HCPCS: 76811

== ENCOUNTER 2025-03-14 10:38 | Outpatient (CLI) | payer BC, MEDICAID, SELFPAY ==
[2025-03-14 11:20] LABS: Hematocrit 32.8 % (37.0-47.0); Hemoglobin 11.4 g/dL (12.2-16.2); Immature Granulocytes % 0.8 %; Mean Corpuscular HGB Conc 34.8 g/dL (31.8-35.4); Mean Corpuscular Hemoglobin 31.3 pg (27.0-31.2); Mean Corpuscular Volume 90.1 fl (81-99); Nucleated Red Blood Cells % 0 %; Platelet Count 257 K/mm3 (142-424); Red Blood Count 3.64 M/mm3 (4.20-5.40); Red Cell Distribution Width-SD 42.8 fL; White Blood Count 9.0 K/mm3 (4.8-10.8)
[2025-03-14 12:31] LABS: Hepatitis C Ab Qual. W/ RFX NEGATIVE (Negative)
[2025-03-15 08:24] LABS: Hepatitis B Surface Antigen Negative (Negative); Rubella Antibodies, IgG 2.87 index (Immune >0.99)
[2025-03-15 14:00] LABS: RPR W/RFX Titers Nonreactive (Nonreactive)
== END 2025-03-14 23:59 | disposition home or self-care (01) ==
LOC: LAB 10:38
PROVIDERS: PCP Family Medicine; Visit Provider Nurse Practitioner Obstetrics & Gynecology
DX: O99.330 Smoking (tobacco) complicating pregnancy, unspecified trimester (principal); F17.200 Nicotine dependence, unspecified, uncomplicated; Z68.35 Body mass index [BMI] 35.0-35.9, adult; Z3A.00 Weeks of gestation of pregnancy not specified
CPT/HCPCS: 36415; 85025; 86592; 86762; 86787; 86803; 86850; 87340; 87389